=== PATIENT | female | born 2000 | race Two or more races ===

== ENCOUNTER 2025-02-24 07:43 | Inpatient (IN) | payer MEDICAID, SELFPAY ==
[2025-02-24] VITALS (8 sets, daily range): BP systolic 113–135; BP diastolic 83–103; PULSE 63–126; RESP 16–19; TEMP 36.3–37.1; O2SAT 96–100; BMI 27.4; BMI 28.8
--- NOTE | 2025-02-24 08:01 | XR_ITS ---
Examination: Abdomen sonogram, Limited Date and time of exam: February 24, 2025 0900 hrs. Indications: Upper abdominal pain and vomiting beginning 2 days ago Technique: Real-time rose scale transabdominal sonographic images of the upper abdomen obtained. Findings: Gallbladder sludge, small gallstones Gallbladder wall 0.3 cm Common bile duct 0.4 cm Pancreatic head 2.7 cm Liver 16.8 cm fatty infiltration irregular contour focal fatty sparing 13 x 13 mm Normal hepatopedal portal venous flow Patent IVC Impression: Cholelithiasis, negative for cholecystitis Primary hepatocellular disease
--- NOTE | 2025-02-24 08:02 | EDNOTE_ITS ---
ED Abdominal Pain RME/HPI General Chief Complaint: Abdominal Pain Stated complaint: UPPER EPIGASRIC PAIN Time seen by provider: 02/24/25 07:48 Arrival date/time: 02/24/25 07:43 24-year-old female with no known medical history presents to the emergency room with a chief complaint of 10 out of 10 right upper quadrant and epigastric abdominal pain x 2 days Source: patient Mode of arrival: ambulatory Limitations: no limitations Related Data Previous Rx's ?Medication ?Instructions ?Recorded acetaminophen 500 mg capsule 1,000 mg (2 x 500 mg) PO TID #30 10/13/22 caps ibuprofen 600 mg tablet 600 mg PO TID PRN pain #30 t abs 10/13/22 ondansetron 4 mg disintegrating 4 mg PO Q8H PRN nausea and 10/13/22 tablet vomiting #15 tabs ondansetron 4 mg disintegrating 4 mg PO Q8H PRN nausea and 06/07/23 tablet vomiting #20 tabs ibuprofen 800 mg tablet 800 mg PO TID PRN pain #30 t abs 09/06/23 cyclobenzaprine 10 mg tablet 10 mg PO TID PRN muscle s pasm #30 09/17/23 tabs ibuprofen 800 mg tablet 800 mg PO TID PRN pain #30 t abs 09/17/23 Allergies Allergy/AdvReac Type Severity Reaction Status Date / Time No Known Allergies Allergy Verified 02/24/25 07:47 Review of Systems Review of Systems Systems Reviewed: All systems reviewed, normal except as documented Constitutional Constitutional: Reports system reviewed and no additional complaints, except as documented, Denies fatigue, Denies fever(s), Denies headache(s) and Denies weakness Eyes Eyes: Reports system reviewed and no additional complaints, except as documented, Denies blurry vision and Denies change in vision ENT Ears, Nose, Mouth, and Throat: Reports system reviewed and no additional complaints, except as documented, Denies otalgia, Denies headache(s), Denies nasal congestion, Denies throat swelling and Denies vertigo Cardiovascular Cardiovascular: Reports system reviewed and no additional complaints, except as documented, Denies chest pain, Denies dyspnea and Denies dyspnea on exertion Respiratory Respiratory: Reports system reviewed and no additional complaints, except as documented, Denies chest congestion, Denies cough, Denies dyspnea, Denies dyspnea on exertion and Denies wheezing Gastrointestinal Gastrointestinal: Reports system reviewed and no additional complaints, except as documented, Reports abdominal pain, Reports cramping, Reports dyspepsia, Reports nausea and Reports vomiting Genitourinary Genitourinary: Reports system reviewed and no additional complaints, except as documented Musculoskeletal Musculoskeletal: Reports system reviewed and no additional complaints, except as documented and Denies back pain Integumentary/Breasts Skin/Breast: Reports system reviewed and no additional complaints, except as documented and Denies wounds Neurologic Neurologic: Reports system reviewed and no additional complaints, except as documented, Denies confusion, Denies headache(s), Denies lack of coordination, Denies vertigo and Denies weakness Psychiatric Psychiatric: Reports system reviewed and no additional complaints, except as documented, Denies anxiety, Denies confusion, Denies depression, Denies paranoia, Denies suicidal ideation and Denies tactile hallucinations Endocrine Endocrine: Reports system reviewed and no additional complaints, except as documented and Denies fatigue Hematologic/Lymphatic Hematologic/Lymphatic: Reports system reviewed and no additional complaints, except as documented and Denies lymphadenopathy Allergic/Immunologic Allergic/Immunologic: Reports system reviewed and no additional complaints, except as documented, Denies throat swelling, Denies urticaria and Denies wheezing Past Medical History Past Medical History NEUROLOGIC: Negative Neurological Disorders CARDIAC: Negative Cardiac Disorders or Congestive Heart Failure RESPIRATORY: Negative Chronic Obstructive Pulmonary Disease (COPD) or Asthma GASTROINTESTINAL: Positive Gastrointestinal Disorders; Negative Hepatitis or Colorectal Cancer GENITOURINARY: Positive Genitourinary Disorders; Negative Renal Disease or Prostate Cancer REPRODUCTIVE: Positive Previous Pregnancies; Negative Breast Cancer or Testicular Cancer MUSCULOSKELETAL: Negative Musculoskeletal Disorders or Bone Cancer ENDOCRINE: Negative Endocrine Disorders, Diabetes Mellitus Type 1 or Diabetes Mellitus Type 2 HEMATOLOGIC: Negative Blood Disorders or Sickle Cell Disease OTHER HISTORY: Negative Hospitalization, Autoimmune Disease, Down Syndrome, Developmental Delay, Shingles, Falls, Blood Transfusions, Blood Transfusion Reaction, Anesthesia Reactions, Organ Transplant, Chemotherapy, Radiation Therapy, Hyperbaric Therapy, MRSA, VRSA, Vancomycin-Resistant Enterococci, Human Immunodeficiency Virus (HIV), Chicken Pox, Measles, Mumps, Rubella (Senegalese Measles), Pertussis, Clostridium Difficile, Breast Cancer, Cervical Cancer, Colorectal Cancer, Lung Cancer, Ovarian Cancer, Prostate Cancer or Testicular Cancer Family History FAMILY HISTORY: Negative Family Psychiatric Problems, Family Respiratory Disorders, Family Cardiac Disorders, Family Gastrointestinal Problems, Family Cancer, Family Surgery or Family Anesthesia Reaction Surgical History SURGICAL: Negative Section or Organ Transplant Social History SMOKING STATUS: Never smoker SUBSTANCE USE: does not use ED Exam General Limitations: Present no limitations General appearance: Present alert and in no apparent distress Head Head exam: Present atraumatic Eye Eye exam: Present normal appearance, PERRL and EOMI ENT ENT exam: Present normal exam, normal oropharynx and mucous membranes moist Neck Neck exam: Present normal inspection, full ROM and trachea midline Chest Chest inspection: Present normal inspection and symmetric chest wall rise Respiratory Respiratory exam: Present normal lung sounds bilaterally Cardiovascular Cardiovascular exam: Present regular rate, normal rhythm and normal heart sounds Abdominal Exam Abdominal exam: Present soft, tenderness, normal bowel sounds and Jordan's sign; Absent distention, guarding, rebound or rigidity Abdominal tenderness: Present RUQ and moderate Extremities Exam Extremities exam: Present normal inspection and full ROM Back Exam Back exam: Present normal inspection and full ROM Neurological Exam Neurological exam: Present alert, oriented X3 and CN II-XII intact Psychiatric Psychiatric exam: Present normal affect and normal mood Skin Skin exam: Present warm, dry, intact and normal color Course Quality Measures none Orders Category Date Time Status COVID-19 Screening Questionnaire NOW Care 02/24/25 11:20 Ordered Decision to Admit X1 Care 02/24/25 11:20 Ordered Insert IV NOW Care 02/24/25 11:08 Active US gall bladder Stat Exams 02/24/25 08:01 Completed CBC Stat Lab 02/24/25 08:21 Completed CMP [Comprehensive Metabolic Panel] Stat Lab 02/24/25 08:21 Completed HCG Qualitative,Urine Stat Lab 02/24/25 08:22 Completed Lipase Stat Lab 02/24/25 08:21 Completed UA [Urinalysis] Stat Lab 02/24/25 08:22 Completed Urine Culture Stat Lab 02/24/25 08:22 Received HYDROcodone*/APAP 5/325 [Blackwell 5/325] Med 02/24/25 08:01 Discontinued 1 tab PO X1 ONE Morphine Inj Med 02/24/25 11:08 Discontinued 4 mg IVP X1 ONE Ondansetron Inj [Zofran Inj] Med 02/24/25 11:08 Discontinued 4 mg IV X1 ONE Ondansetron Odt [Zofran Odt] Med 02/24/25 08:01 Discontinued 4 mg PO X1 ONE Piper/Tazo 3.375 gm Premix [Zosyn] Med 02/24/25 11:08 Active 3.375 gm in 50 ml IV X1 Sodium Chloride 0.9% 1000 ml [Ns] 1,000 ml Med 02/24/25 11:08 Active IV 999 mls/hr Vital Signs Vital signs: Vital Signs Temperature 98.3 F 02/24/25 07:58 Pulse Rate 126 H 02/24/25 07:58 Respiratory Rate 18 02/24/25 07:58 Blood Pressure 124/92 H 02/24/25 07:58 Pulse Oximetry (%) 100 02/24/25 07:58 Oxygen Delivery Method Room Air 02/24/25 07:58 O2 saturation 100% within normal limits Abdominal Pain MDM MDM Narrative MDM Narrative:: 24-year-old female with no known medical history presents to the emergency room with a chief complaint of 10 out of 10 right upper quadrant and epigastric abdominal pain x 2 days Patient is afebrile not tachypneic but is tachycardic at 126 bpm. Physical examination shows right upper quadrant abdominal tenderness, 10 out of 10 epigastric pain with a positive Jordan sign. Ultrasound of the gallbladder was completed and shows gallbladder sludge as well as multiple small stones. At this time the bilirubin and liver enzymes are within normal limits. Patient has a lipase of 1048. During reevaluation the patient is still in pain. Dr. Evans and his attending team were consulted for admission. They came down to evaluate the patient and the patient will be admitted under their team. Patient data External records reviewed:: [facility] previous records Clinical information provided by:: patient Social determinants that could affect healthcare access:: none Patient has the following chronic illnesses:: No chronic illness How is presenting disease/condition affected by chronic disease/condition?: no chronic disease Evaluation data The following diagnostics were reviewed and interpreted by me:: lab results and radiology exam(s) Lab and/or radiology exams considered but not ordered:: Labs and radiology exams considered and ordered Interpretation Summary: Ultrasound gallbladder-Findings: Gallbladder sludge, small gallstones Gallbladder wall 0.3 cm Common bile duct 0.4 cm Pancreatic head 2.7 cm Liver 16.8 cm fatty infiltration irregular contour focal fatty sparing 13 x 13 mm Normal hepatopedal portal venous flow Patent IVC Impression: Cholelithiasis, negative for cholecystitis Primary hepatocellular disease Medications / Prescriptions Medications or Prescriptions considered but not ordered:: Medication given Medication administrations:: Medication Administration History Piperacillin/Tazobactam/Dextrose (Zosyn) 3.375 gm in 50 mls @ 100 mls/hr IV X1 ONE Stop: 02/24/25 11:37 Sodium Chloride (Ns) 1,000 mls @ 999 mls/hr IV .Q1H1M ONE Stop: 02/24/25 12:08 Discontinued Medications Hydrocodone Bitart/Acetaminophen (Hydrocodone/Apap 5/325 Tablet) 1 tab PO X1 ONE Stop: 02/24/25 08:02 Last Admin: 02/24/25 08:09 Dose: 1 tab Documented By: GM Morphine Sulfate (Morphine Sulf Inj 10 Mg/Ml Vial) 4 mg IVP X1 ONE Stop: 02/24/25 11:09 Ondansetron HCl (Ondansetron Odt 4 Mg Tabrap) 4 mg PO X1 ONE; Protocol Stop: 02/24/25 08:02 Last Admin: 02/24/25 08:10 Dose: 4 mg Documented By: GM Ondansetron HCl (Ondansetron Inj 2 Mg/Ml Inj 2 Ml) 4 mg IV X1 ONE; Protocol Stop: 02/24/25 11:09 Medication given Consultations Consultation(s) initiated? (list below): No Diagnosis Differential diagnosis abdominal pain: abdominal pain, constipation, gastroenter itis, small bowel obstruction and other (Cholelithiasis/cholecystitis/acute pancreatitis) Most likely diagnosis given after review of the tests above:: Pancreatitis Admission Indicated Admission indicated?: not indicated Admission Request Was there a request for admission?: Yes Admission Attestation Admission request attestation: Discussed case with [] from Hospitalist service regarding admission. Discussed patients ED course, exam findings, labs, and radiology results. The Hospitalist [agrees,declines] to accept the patient for admission. Disposition Plan Disposition Plan: Admit Discharge Plan Plan Patient Disposition: Admit Acute Care w/in Hospital Disposition Comment: Stable Prescriptions/Referrals Prescriptions/Med Rec: No Action ondansetron 4 mg tablet,disintegrating 4 mg PO Q8H PRN (Reason: nausea and vomiting) Qty: 20 0RF ibuprofen 600 mg tablet 600 mg PO TID PRN (Reason: pain) Qty: 30 0RF ondansetron 4 mg tablet,disintegrating 4 mg PO Q8H PRN (Reason: nausea and vomiting) Qty: 15 0RF acetaminophen 500 mg capsule 1,000 mg PO TID Qty: 30 0RF ibuprofen 800 mg tablet 800 mg PO TID PRN (Reason: pain) Qty: 30 0RF ibuprofen 800 mg tablet 800 mg PO TID PRN (Reason: pain) Qty: 30 0RF cyclobenzaprine 10 mg tablet 10 mg PO TID PRN (Reason: muscle spasm) Qty: 30 0RF Referrals: No Primary/Family,Physician [Primary Care Provider] - In 1 week Problem List Clinical Impression: Acute pancreatitis, UTI (urinary tract infection), Nausea & vomiting Patient/Caregiver Discharge Instructions Print Language: Micronesian Stand Alone Forms: Keisha Award Info., Patient Portal Info Letter PA/SIMULATION SOFTWARE ENGINEER Supervising Physician PA/SIMULATION SOFTWARE ENGINEER Supervising Physician: Dr. Henning
[2025-02-24] MEDS: HYDROcodone/APAP 5/325 TABLET 1 TAB PO (08:09)
[2025-02-24] MEDS: ONDANSETRON ODT 4 MG TABRAP PO (08:10)
[2025-02-24 08:32] LABS: Collection Type, Urine Clean Catch
[2025-02-24 08:37] LABS: Bilirubin,Urine Negative (Negative); Blood,Urine Negative (Negative); Clarity,Urine Turbid (Clear/Hazy); Color,Urine Yellow (Lt Yel-Yel); Glucose, Urine Negative (Negative); Ketones,Urine 1+ (Negative); Leukocyte Esterase,Urine Positive (Negative); Nitrite,Urine Negative (Negative); Protein,Urine Trace (Neg - Trace); RBC,Urine 14 /hpf (0-3); Specific Gravity,Urine 1.016 (1.001-1.035); Squamous Epithelial Cell,Urine 8 /hpf (0-5); WBC,Urine 156 /hpf (0-5)
[2025-02-24 08:38] LABS: HCG Qualitative,Urine Negative
[2025-02-24 09:06] LABS: Basophils % (Auto) 0 % (0-2.5); Eosinophils # (Auto) 0.2 Thou/mm3 (0.0-0.5); Eosinophils % (Auto) 1 % (0-10); Hematocrit 41.1 % (36.0-46.0); Hemoglobin 14.4 g/dL (12.0-16.0); Immature Granulocytes % (Auto) 0 % (0-0); Immature Granulocytes Auto 0.07 Thou/mm3 (0.00-0.00); Lymphocytes # (Auto) 2.6 Thou/mm3 (1.0-4.8); Lymphocytes % (Auto) 16 % (10-50); Mean Corpuscular Hemoglobin 36.8 pg (25.0-35.0); Mean Corpuscular Volume 105 fL (80-100); Monocytes # (Auto) 0.9 Thou/mm3 (0.0-0.8); Monocytes % (Auto) 5 % (0-12); Neutrophils # (Auto) 12.8 Thou/mm3 (1.8-7.7); Neutrophils % (Auto) 77 % (37-80); Nucleated Red Blood Cell % 0 /100 WBC (0); Platelet Count 552 Thou/mm3 (140-440); RDW Standard Deviation 57.8 fL (36.4-46.3); Red Blood Count 3.91 Miln/mm3 (4.00-5.20); White Blood Count 16.6 Thou/mm3 (3.6-11.0)
[2025-02-24 09:31] LABS: Alanine Aminotransferase 18 U/L (10-49); Albumin, Serum 4.4 gm/dL (3.5-5.0); Albumin/Globulin Ratio 1.4 (1.2-2.2); Alkaline Phosphatase 108 U/L (46-116); Anion Gap 15 (7-16); Aspartate Amino Transferase 27 U/L (0-34); BUN/Creatinine Ratio 10 Ratio (12-20); Blood Urea Nitrogen < 5 mg/dL (9-23); Calcium 9.8 mg/dL (8.3-10.6); Calcium (Corrected) 9.8 mg/dL (8.5-10.1); Carbon Dioxide 19.1 mMol/L (20.0-31.0); Chloride 104 mMol/L (98-107); Creatinine (Component) 0.5 mg/dL (0.6-1.3); Estimated Creatinine Clearance 155.5 mL/min (>60); Globulin 3.2 gm/dL (2.3-3.5); Glucose 102 mg/dL (74-106); Lipase 1048 U/L (12-53); Osmolality,Calculated 272 (275-295); Potassium 3.3 mMol/L (3.4-5.1); Sodium 138 mMol/L (136-145); Total Protein 7.6 gm/dL (5.7-8.2); eGFR > 60 See Note
--- NOTE | 2025-02-24 11:13 | PD.EDRME ---
Rapid Medical Screening Exam RME Arrival date/time: 02/24/25 07:43 Chief Complaint: Abdominal Pain Time Seen by Provider: 02/24/25 07:48 Vital signs: Vital Signs Temperature 98.3 F 02/24/25 07:58 Pulse Rate 126 H 02/24/25 07:58 Respiratory Rate 18 02/24/25 07:58 Blood Pressure 124/92 H 02/24/25 07:58 Pulse Oximetry (%) 100 02/24/25 07:58 Oxygen Delivery Method Room Air 02/24/25 07:58
[2025-02-24] MEDS: SODIUM CHLORIDE 0.9% 1000 ML 1,000 ML 999 ML IV (11:46)
[2025-02-24] MEDS: ONDANSETRON INJ 2 MG/ML INJ 2 ML 4 MG IV ×2 (11:47→16:05)
[2025-02-24] MEDS: MORPHINE SULF INJ 10 MG/ML VIAL 4 MG IVP (11:48)
[2025-02-24] MEDS: PIPER/TAZO 3.375 GM PREMIX 3.375 GM/50 ML BAG IV (11:52)
--- NOTE | 2025-02-24 12:09 | PC.CC ---
Patient is a 24 year-old who presents to the hospital for upper epigastric pain. Belinda FOLEY made [id number] contact with patient. ASW introduced self, role, and reason for visit. Patient appeared alert and oriented to self, location, and situation. Patient was pleasant and engaged in initial assessment. Patient reports she lives at home with her two children and she is currently unemployed. Patient reports in the event she is unable to make her own medical decisions her medical decision maker is her mother, Cristiana Estevez . Per patient at home she is independent with all her ADLs and ambulates independently. Patient does not use any DME at home. Patient receives primary care with [facility] [address]. For prescription medications the patient uses [facility]. Upon discharge the patient plans to return home. Loader Unloader to follow up with any discharge needs.
[2025-02-24] MEDS: HYDROmorphone INJ 2 MG/ML VIAL 0.5 MG IVP ×3 (12:20→19:54)
[2025-02-24] MEDS: RINGERS LACTATED 1000 ML 1,000 ML 125 ML IV ×2 (12:35→20:13)
[2025-02-24] MEDS: PANTOPRAZOLE 40 MG TABLET PO (12:35)
--- NOTE | 2025-02-24 15:23 | PC.NURSE ---
REPORT GIVEN TO KAITLIN IN MED SURG
--- NOTE | 2025-02-24 15:51 | ESHP_ITS ---
<Statement entered by Jan Clifton MD - 02/25/25 07:30> Senior Resident Attestation: I supervised/discussed management plan with product marketing intern physician Dr. Johnston, and was involved in the care of this patient. I personally saw and examined the patient and discussed the assessment and plan with the entire medicine team, including my attending. I agree with the assessment and plan as documented. Patient's care was discussed with attending physician, Dr. Evans. Jan Clifton MD PGY-2. Documentation for date of: 02/24/25 HPI History of Present Illness Chief complaint: abdominal pain History of present illness: A 24-year-old female with no significant past medical history presented to the ED with chief complaints of abdominal pain and vomiting since 2 days. Patient was apparently normal 2 days back. Patient had 4 shots of spirit and had greasy food 2 days before. Patient noticed severe abdominal pain on waking up yesterday night and since then she is complaining of abdominal pain mainly in the epigastric region radiating to the back. Later patient started developing nausea with vomitings and had multiple episodes. Denies fever, diarrhea, shortness of breath, burning micturition ED course: -Vitals are stable at the time of admission except for tachycardia with heart rate around 126 -Labs showed WBC 16.6, Hb 14.4, platelets 552, sodium 138, potassium 3.3, bicarb 19.1, BUN 5, creatinine 0.5, lipase 1048. -Urine analysis showed turbid urine with 1+ ketones, 14 RBC, 156 WBC, 8 squamous epithelial cells with no bacteria -Gallbladder ultrasound showed cholelithiasis with no duct obstruction with CBD 0.4 cm Past medical history: Not significant Past surgical history: Not significant Social history: Lives with 2 children at home, currently not going for work, previously used to work in [employer]. Denies smoking, other illicit drug abuse. Consumes alcohol 3-4 shots twice in a week Allergies: NKDA Review of Systems Review of Systems Systems Reviewed: All systems reviewed, normal except as documented Exam Vital Signs Temp Pulse Resp BP Pulse Ox O2 Del Method 98.8 F 94 18 119/89 H 98 Room Air 02/24/25 14:15 02/24/25 14:15 02/24/25 14:15 02/24/25 14:15 02/24/25 14:15 02/24/25 14:15 Narrative Exam General: Awake. HEENT: Normocephalic, atraumatic, mucous membranes moist. Heart: Regular rate and rhythm, no murmurs. Lungs: Clear to auscultation with no wheezing or crackles. Abdomen: Soft, nondistended, epigastric tenderness noted,, positive bowel sounds. ?No guarding or rebound tenderness. Neurologic: Alert and oriented x3, no gross neurological deficit, and patient able to move all 4 extremities. Extremities: No edema. Skin: No rash or ecchymoses. Results: Labs 02/28/25 05:10 02/28/25 05:10 Labs: Short CBC 02/24/25 Range/Units 08:21 WBC 16.6 H (3.6-11.0) Thou/mm3 Hgb 14.4 (12.0-16.0) g/dL Hct 41.1 (36.0-46.0) % Plt Count 552 H (140-440) Thou/mm3 BMP 02/24/25 08:21 Sodium 138 Potassium 3.3 L Chloride 104 Carbon Dioxide 19.1 L BUN < 5 L Creatinine 0.5 L Glucose 102 Calcium 9.8 Liver Function 02/24/25 Range/Units 08:21 Total Bilirubin 1.0 (0.3-1.2) mg/dL AST 27 (0-34) U/L ALT 18 (10-49) U/L Alkaline Phosphatase 108 (46-116) U/L Albumin 4.4 (3.5-5.0) gm/dL Urine 02/24/25 Range/Units 08:22 Urine Color Yellow (Lt Yel-Yel) Urine Clarity Turbid A (Clear/Hazy) Urine pH 6.0 (5.0-7.0) Ur Specific [place] 1.016 (1.001-1.035) Urine Protein Trace (Neg - Trace) Urine Glucose (UA) Negative (Negative) Quality Measures Quality Measures none Medications Home Medications and Allergies Home Medications ?Medication ?Instructions ?Recorded ?Confirmed ?Type ergocalciferol (vitamin D2) 1,250 1,250 mcg PO .ONCE [place] 02/24/25 02/24/25 History mcg (50,000 unit) capsule folic acid 1 mg tablet 1 mg PO DAILY 02/24/2502/24 History Allergies Allergy/AdvReac Type Severity Reaction Status Date / Time No Known Allergies Allergy Verified 02/24/25 07:47 Visit Medications Acetaminophen (Acetaminophen 325 Mg Tablet) 650 mg PO Q6H PRN PRN Reason: Fever >100.3 Stop: 03/26/25 11:33 Hydromorphone HCl (Hydromorphone Inj 2 Mg/Ml Vial) 0.5 mg IVP Q3HR PRN PRN Reason: Pain 7-10 Stop: 03/01/25 11:33 Last Admin: 02/24/25 15:01 Dose: 0.5 mg Lactated Ringer's (Lactated Ringers) 1,000 mls @ 125 mls/hr IV .Q8H SHAE Stop: 03/26/25 11:44 Last Admin: 02/24/25 12:35 Dose: 125 mls/hr Ondansetron HCl (Ondansetron Inj 2 Mg/Ml Inj 2 Ml) 4 mg IV Q6H PRN; Protocol PRN Reason: NAUSEA OR VOMITING Stop: 03/26/25 11:33 Pantoprazole Sodium (Pantoprazole 40 Mg Tablet) 40 mg PO QDAY SHAE Stop: 03/26/25 11:44 Last Admin: 02/24/25 12:35 Dose: 40 mg Discontinued Medications Hydrocodone Bitart/Acetaminophen (Hydrocodone/Apap 5/325 Tablet) 1 tab PO X1 ONE Stop: 02/24/25 08:02 Last Admin: 02/24/25 08:09 Dose: 1 tab Piperacillin/Tazobactam/Dextrose (Zosyn) 3.375 gm in 50 mls @ 100 mls/hr IV X1 ONE Stop: 02/24/25 11:37 Last Infusion: 02/24/25 12:30 Dose: Infused Sodium Chloride (Ns) 1,000 mls @ 999 mls/hr IV .Q1H1M ONE Stop: 02/24/25 12:08 Last Infusion: 02/24/25 14:20 Dose: Infused Morphine Sulfate (Morphine Sulf Inj 10 Mg/Ml Vial) 4 mg IVP X1 ONE Stop: 02/24/25 11:09 Last Admin: 02/24/25 11:48 Dose: 4 mg Ondansetron HCl (Ondansetron Odt 4 Mg Tabrap) 4 mg PO X1 ONE; Protocol Stop: 02/24/25 08:02 Last Admin: 02/24/25 08:10 Dose: 4 mg Ondansetron HCl (Ondansetron Inj 2 Mg/Ml Inj 2 Ml) 4 mg IV X1 ONE; Protocol Stop: 02/24/25 11:09 Last Admin: 02/24/25 11:47 Dose: 4 mg Assessment & Plan Plan A 24-year-old female with no significant past medical history came to the hospital with chief complaints of abdominal Pain, vomitings and admitted for acute pancreatitis # Acute pancreatitis -Patient presented to the hospital with epigastric pain radiating to the back associated with vomitings -Labs showed lipase of 1048, WBC 16.6, Hb 14.4 -Patient had history of alcohol intake-4 shots of spirit, greasy food intake before the onset of pain -Gallbladder ultrasound showed cholelithiasis with CBD 0.4 cm, no cholecystitis Plan -Patient received 1 L of IV bolus NS in the ED -Started on IV fluids maintenance, LR at 125 mL/h -Hydromorphone 0.5 Mg every third hourly as needed for pain -Ondansetron as needed -N.p.o. for now except for ice chips -Patient is complaining of epigastric pain with burning sensation, added pantoprazole 40 Mg p.o. daily # Hypokalemia # Metabolic acidosis -Potassium at the time of admission is 3.3, bicarb is 19.1 -Likely due to the vomitings -Started on ondansetron as needed -Will monitor electrolytes, replete accordingly # Asymptomatic UTI -Urine analysis showed turbid urine with 1+ ketonuria, 14 RBC, 156 WBC but patient does not have any symptoms of UTI -Will hold antibiotics for now Hospital Maintenance: Dispo: MedSurg DVT ppx: SCD GI ppx: Protonix Diet: N.p.o. except ice chips IV lines: Peripheral Code status: Full code Patient plan of care was discussed with the attending physician, Dr. Evans and senior resident Dr. Elodia Johnston, PGY1 Attending Provider Attestation/Addendum Patient seen and examined at bedside with resident. Agree with assessment and plan as dictated above. Patient admitted for acute pancreatitis, pain management, fluids, labs for etiology currently pending. Bill Evans MD
--- NOTE | 2025-02-24 15:52 | PC.SS ---
Charlotte Morse is 24 year-old female admitted to Med-Surg for Pancreatitis. SS conducted bedside contact with the patient to complete initial assessment and to discuss discharge planning.? Patient confirmed demographic information. Patient identifies her mother Cristiana Estevez [phone] as her surrogate decision maker. Patient resides at home with her family. Pt states she is able to complete all ADL?s independently, no DME needed. Pts PCP is Dr. Yanez [facility] (last visit 1 month ago) and her pharmacy of choice is [facility]. DC options discussed and pt wishes to return home. Pts family will provide transportation upon DC. No further intervention required at this time, child welfare social worker would be available to address any further concerns. DC Plan: Home Contact: Mom-Cristiana ? PCP: Beau Address: [address]
[2025-02-25] VITALS (7 sets, daily range): BP systolic 122–134; BP diastolic 83–100; PULSE 66–104; RESP 16–19; TEMP 36.1–36.8; O2SAT 95–99
[2025-02-25] MEDS: ONDANSETRON INJ 2 MG/ML INJ 2 ML 4 MG IV ×3 (03:17→21:42)
[2025-02-25] MEDS: HYDROmorphone INJ 2 MG/ML VIAL 0.5 MG IVP ×4 (04:00→21:41)
[2025-02-25] MEDS: RINGERS LACTATED 1000 ML 1,000 ML 125 ML IV ×2 (04:07→16:13)
[2025-02-25 05:04] LABS: Basophils % (Auto) 0 % (0-2.5); Eosinophils # (Auto) 0.1 Thou/mm3 (0.0-0.5); Eosinophils % (Auto) 1 % (0-10); Hemoglobin 11.9 g/dL (12.0-16.0); Immature Granulocytes % (Auto) 1 % (0-0); Immature Granulocytes Auto 0.06 Thou/mm3 (0.00-0.00); Lymphocytes # (Auto) 1.5 Thou/mm3 (1.0-4.8); Lymphocytes % (Auto) 12 % (10-50); Mean Corpuscular Hemoglobin 36.2 pg (25.0-35.0); Mean Corpuscular Volume 106 fL (80-100); Monocytes # (Auto) 0.8 Thou/mm3 (0.0-0.8); Monocytes % (Auto) 6 % (0-12); Neutrophils # (Auto) 10.1 Thou/mm3 (1.8-7.7); Neutrophils % (Auto) 80 % (37-80); Nucleated Red Blood Cell % 0 /100 WBC (0); Platelet Count 331 Thou/mm3 (140-440); RDW Standard Deviation 58.7 fL (36.4-46.3); Red Blood Count 3.29 Miln/mm3 (4.00-5.20); White Blood Count 12.6 Thou/mm3 (3.6-11.0)
[2025-02-25 05:43] LABS: Anion Gap 10 (7-16); BUN/Creatinine Ratio 15 Ratio (12-20); Blood Urea Nitrogen 6 mg/dL (9-23); Calcium 8.6 mg/dL (8.3-10.6); Carbon Dioxide 21.4 mMol/L (20.0-31.0); Cardiac Risk Estimate 5.1 RATIO (3.7-5.6); Chloride 106 mMol/L (98-107); Cholesterol 157 mg/dL (132-200); Creatinine (Component) 0.4 mg/dL (0.6-1.3); Estimated Creatinine Clearance 199.1 mL/min (>60); Glucose 89 mg/dL (74-106); HDL Cholesterol 31 mg/dL (40-60); LDL Cholesterol,Calculated 101 mg/dL (0-130); Lipase 401 U/L (12-53); Magnesium 1.4 mg/dL (1.6-2.6); Osmolality,Calculated 270 (275-295); Phosphorous 4.8 mg/dL (2.4-5.1); Potassium 3.9 mMol/L (3.4-5.1); Sodium 137 mMol/L (136-145); Thyroid Stimulating Hormone 1.02 uIU/mL (0.55-4.78); Triglycerides 123 mg/dL (30-150); eGFR > 60 See Note
[2025-02-25] MEDS: PANTOPRAZOLE 40 MG TABLET PO (08:09)
[2025-02-25] MEDS: Magnesium Sulfate 4 GM Ivpb 4 GM/50 ML BAG IV (08:59)
--- NOTE | 2025-02-25 09:55 | PC.SS ---
SS follow up note; Patient is currently on IV fluids. Patients pain is being manage with Opioids for pain. Patient will discharge home when medically cleared.
--- NOTE | 2025-02-25 13:16 | PC.NURSE ---
RN called MD for PT eval order due to patient c/o BLE weakness. MD will put in order.
--- NOTE | 2025-02-25 16:05 | ESCONSULT_ITS ---
HPI Consult details History of present illness: 24F admitted yesterday with pancreatitis. Pt states her pain began two days ago in the epigastrium, radiating to the left and right upper abdomen as well as to the back. Pain associated with nausea/vomiting, no fever, no diarrhea and no history of similar pain. Pt reports she drank approximately 3 shots the night before the pain began, and has not noted any association of the pain with eating. She states that at baseline she has a minimal appetite and she has never had RUQ pain associated with eating. On admission she underwent abdominal US showing gallstones, no signs of cholecystitis As of today pt reports pain is improved, she only feels soreness and no longer has nausea although she has her baseline minimal appetite. Her WBC is 12 today from 16, LFTs were normal yesterday and lipase was 1048 yesterday now in 400s PMH: Denies PSHx: Denies Meds: vitamin D, folate Allergies: NKDA Social hx: pt reports she drinks somewhat heavily with friends on weekends, mixing beer and hard liquor usually having several drinks but not on weekdays. No cigarette smoking Family hx: No known malignancy Review of Systems Review of Systems ROS Unobtainable: All systems reviewed & no additional complaints except as documented Constitutional Constitutional: Denies headache(s) and Denies weakness ENT Ears, Nose, Mouth, and Throat: Denies headache(s) and Denies vertigo Neurologic Neurologic: Reports system reviewed and no additional complaints, except as documented, Denies confusion, Denies headache(s), Denies lack of coordination, Denies vertigo and Denies weakness Psychiatric Psychiatric: Denies confusion Meds Home Medications and Allergies Home Medications ?Medication ?Instructions ?Recorded ?Confirmed ?Type ergocalciferol (vitamin D2) 1,250 1,250 mcg PO .ONCE W [place] 02/24/25 02/24/25 History mcg (50,000 unit) capsule folic acid 1 mg tablet 1 mg PO DAILY 02/24/2502/24 History Allergies Allergy/AdvReac Type Severity Reaction Status Date / Time No Known Allergies Allergy Verified 02/24/25 07:47 Exam Vital Signs Temp Pulse Resp BP Pulse Ox O2 Del Method 97.0 F 66 16 125/90 H 97 Room Air 02/25/25 12:00 02/25/25 12:00 02/25/25 12:00 02/25/25 14:01 02/25/25 12:00 02/25/25 12:00 Constitutional Constitutional: no acute distress Routine Respiratory Exam Respiratory: Present no resp distress Routine Abdominal Exam Abdominal: Present soft; Absent tenderness or distended Results Results: Laboratory Laboratory results: results reviewed Results: Imaging US - abdomen: report reviewed Assessment & Plan Plan 24F presenting with acute pancreatitis approx 24 hours after drinking liquor, additionally found to have gallstones. I explained to pt that alcohol and gallstones are the two most common causes of pancreatitis and that it is somewhat difficult to determine how much each factor contributed to her particular clinical presentation; because she is otherwise healthy I think it is reasonable to pursue cholecystectomy either during this admission or electively as an outpatient. I explained risks/benefits of surgery including need for conversion to open, bleeding, infection and injury to nearby structures requiring further procedures and/or potential surgery which would require transfer to another hospital. Pt expressed understanding and would like to consider for now
--- NOTE | 2025-02-25 16:28 | ESPR_ITS ---
<Statement entered by Jan Clifton MD - 02/27/25 07:35> Senior Resident Attestation: I supervised/discussed management plan with inclusion internship physician Dr. Johnston, and was involved in the care of this patient. I personally saw and examined the patient and discussed the assessment and plan with the entire medicine team, including my attending. I agree with the assessment and plan as documented. Patient's care was discussed with attending physician, Dr. Ramsey. Jan Clifton MD PGY-2. Documentation for date of: 02/25/25 Subjective Subjective Interval history: Patient is seen and examined at bedside. No acute overnight events. Complaining of weakness in lower extremities and having difficulty in walking Vitals are stable. On physical examination, no gross neurological deficit is noted, lower extremity weakness could be due to the acute illness and dehydration in the setting of pancreatitis Labs showed downtrending WBC, magnesium 1.4, downtrending lipase 401 Dr. Arellano is consulted in view of gallstones noted on ultrasound, will appreciate her recommendations Will continue IV fluids and pain medications for now 4 g of magnesium sulfate is given Exam Vital Signs Temp Pulse Resp BP Pulse Ox O2 Del Method 97.0 F 66 16 125/90 H 97 Room Air 02/25/25 12:00 02/25/25 12:00 02/25/25 12:00 02/25/25 14:01 02/25/25 12:00 02/25/25 12:00 Narrative Exam General: Awake. HEENT: Normocephalic, atraumatic, mucous membranes dry Heart: Regular rate and rhythm, no murmurs. Lungs: Clear to auscultation with no wheezing or crackles. Abdomen: Soft, nondistended, nontender, positive bowel sounds. ?No guarding or rebound tenderness. Neurologic: Alert and oriented x3, no gross neurological deficit, and patient able to move all 4 extremities. Extremities: No edema. Skin: No rash or ecchymoses. Objective Labs 02/26/25 04:10 02/26/25 04:10 Labs: Laboratory Results - last 24 hr 02/25/25 05:00 WBC 12.6 H RBC 3.29 L Hgb 11.9 L D Hct 35.0 L MCV 106 H MCH 36.2 H MCHC 34.0 RDW Std Deviation 58.7 H Plt Count 331 D Neut % (Auto) 80 Lymph % (Auto) 12 [place] % (Auto) 6 Eos % (Auto) 1 Baso % (Auto) 0 Neut # (Auto) 10.1 H Lymph # (Auto) 1.5 [place] # (Auto) 0.8 Eos # (Auto) 0.1 Baso # (Auto) 0.0 Immature Gran # (Auto) 0.06 H Absolute Nucleated RBC 0.00 Immature Gran % 1 H Nucleated RBC % 0 Sodium 137 Potassium 3.9 D Chloride 106 Carbon Dioxide 21.4 Anion Gap 10 BUN 6 L Creatinine 0.4 L Estim Creat Clear Calc 199.1 eGFR > 60 BUN/Creatinine Ratio 15 Glucose 89 Calculated Osmolality 270 L Calcium 8.6 Phosphorus 4.8 Magnesium 1.4 L Triglycerides 123 Cholesterol 157 LDL Cholesterol, Calc 101 HDL Cholesterol 31 L Cholesterol/HDL Ratio 5.1 Lipase 401 H D TSH 1.02 Quality Measures Quality Measures none Assessment & Plan Assessment Current Active Medications: Generic Name Dose Route Start Last Admin Trade Name Freq PRN Reason Stop Dose Admin Acetaminophen 650 mg 02/24/25 11:34 Acetaminophen 325 Mg Tablet PO 03/26/25 11:33 Q6H PRN Fever >100.3 Hydromorphone HCl 0.5 mg 02/24/25 11:34 02/25/25 08:58 Hydromorphone Inj 2 Mg/Ml Vial IVP 03/01/25 11:33 0.5 mg Q3HR PRN Administration Pain 7-10 Lactated Ringer's 1,000 mls @ 125 mls/hr 02/25/25 13:39 02/25/25 16:13 Lactated Ringers IV 02/26/25 05:38 125 mls/hr .Q8H SHAE Administration Ondansetron HCl 4 mg 02/24/25 11:34 02/25/25 11:58 Ondansetron Inj 2 Mg/Ml Inj 2 Ml IV 03/26/25 11:33 4 mg Q6H PRN Administration NAUSEA OR VOMITING Protocol Pantoprazole Sodium 40 mg 02/24/25 11:45 02/25/25 08:09 Pantoprazole 40 Mg Tablet PO 03/26/25 11:44 40 mg QDAY SHAE Administration Plan A 24-year-old female with no significant past medical history came to the hospital with chief complaints of abdominal Pain, vomitings and admitted for acute pancreatitis # Acute pancreatitis -Patient presented to the hospital with epigastric pain radiating to the back associated with vomitings -Labs showed lipase of 1048, WBC 16.6, Hb 14.4 -Patient had history of alcohol intake-4 shots of spirit, greasy food intake before the onset of pain -Gallbladder ultrasound showed cholelithiasis with CBD 0.4 cm, no cholecystitis Plan -Patient received 1 L of IV bolus NS in the ED -Started on IV fluids maintenance, LR at 125 mL/h -Hydromorphone 0.5 Mg every third hourly as needed for pain -Ondansetron as needed -Started on clear liquid diet -Patient is complaining of epigastric pain with burning sensation, added pantoprazole 40 Mg p.o. daily -Ordered physical therapy as patient is c/o difficulty walking and weakness in the lower extremities - likely due to electrolyte imbalance and acute illness, dehydration from pancreatitis - will re evaluate tomorrow and if the weakness still exists will workup more -Dr. Baldwin was consulted in view of gallstones, recommended surgery to the patient either in the hospital or on outpatient basis-patient is thinking about the procedure # Hypokalemia, resolved # Metabolic acidosis -Potassium at the time of admission is 3.3, bicarb is 19.1 - WNL as of 02/25/2025 -Likely due to the vomitings -Started on ondansetron as needed -Will monitor electrolytes, replete accordingly # Asymptomatic UTI -Urine analysis showed turbid urine with 1+ ketonuria, 14 RBC, 156 WBC but patient does not have any symptoms of UTI -Will hold antibiotics for now Hospital Maintenance: Dispo: MedSurg DVT ppx: lovenox GI ppx: Protonix Diet: Clear liquid diet IV lines: Peripheral Code status: Full code Patient plan of care was discussed with the attending physician, Dr. Ramsey and senior resident Dr. Elodia Johnston, PGY1 Attending Provider Attestation/Addendum I attest that I was physically present for the evaluation, physical examination, lab and imaging review of the patient with the residents. I discussed the case with the residents and agree with the findings and plans of care as documented above. At bedside today, patient states that her pain is improving.? Her nausea has also improved, she has started to tolerate clear liquid diet.? Continues to have abdominal tenderness but states it has improved compared to yesterday.? Discussed with patient regarding cause of her pancreatitis, unable to differentiate if it was from alcohol salts she took for gallstone pancreatitis as patient also was found to have cholelithiasis on gallbladder ultrasound.? We will obtain general surgery consult to evaluate the need for cholecystectomy.? Vital signs are stable today.? WBC count has been downtrending, 16.6-12.6 today. Vital signs her magnesium level was 1.4, repleted accordingly.? Lipase level have been improving, 401 today from 1048 yesterday.? Patient also stated that she was having some lower leg weakness, numbness and tingling for last few days.? She had similar symptoms this morning to but stated that it has been improving in the afternoon.? We will continue to monitor. Sheri Ramsey MD
[2025-02-25] MEDS: ENOXAPARIN SOD INJ 40 MG/0.4 ML SYRINGE SC (17:03)
[2025-02-25] MEDS: FOLIC ACID 1 MG TABLET PO (17:03)
[2025-02-25] MEDS: THIAMINE 100 MG TABLET PO (17:03)
[2025-02-25 20:46] LABS: Vitamin B12 302 pg/mL (211-911)
[2025-02-25] MEDS: LORazepam 0.5 MG TABLET PO (21:48)
[2025-02-26] VITALS: BP 109/85; PULSE 77; RESP 16; TEMP 36.4; O2SAT 93
[2025-02-26] MEDS: RINGERS LACTATED 1000 ML 1,000 ML 125 ML IV (00:07)
[2025-02-26 04:00] VITALS: BP 112/77; PULSE 78; RESP 16; TEMP 36.3; O2SAT 97
[2025-02-26 05:42] LABS: Basophils % (Auto) 1 % (0-2.5); Eosinophils # (Auto) 0.2 Thou/mm3 (0.0-0.5); Eosinophils % (Auto) 3 % (0-10); Hematocrit 30.1 % (36.0-46.0); Hemoglobin 10.4 g/dL (12.0-16.0); Immature Granulocytes % (Auto) 1 % (0-0); Immature Granulocytes Auto 0.04 Thou/mm3 (0.00-0.00); Lymphocytes # (Auto) 1.8 Thou/mm3 (1.0-4.8); Lymphocytes % (Auto) 22 % (10-50); Mean Corpuscular HGB Conc 34.6 g/dl (31.0-37.0); Mean Corpuscular Hemoglobin 36.6 pg (25.0-35.0); Mean Corpuscular Volume 106 fL (80-100); Monocytes # (Auto) 0.6 Thou/mm3 (0.0-0.8); Monocytes % (Auto) 7 % (0-12); Neutrophils # (Auto) 5.5 Thou/mm3 (1.8-7.7); Neutrophils % (Auto) 67 % (37-80); Nucleated Red Blood Cell % 0 /100 WBC (0); Platelet Count 301 Thou/mm3 (140-440); RDW Standard Deviation 58.4 fL (36.4-46.3); Red Blood Count 2.84 Miln/mm3 (4.00-5.20); White Blood Count 8.2 Thou/mm3 (3.6-11.0)
[2025-02-26 06:06] LABS: Anion Gap 10 (7-16); BUN/Creatinine Ratio 17 Ratio (12-20); Blood Urea Nitrogen < 5 mg/dL (9-23); Calcium 8.1 mg/dL (8.3-10.6); Carbon Dioxide 21.9 mMol/L (20.0-31.0); Chloride 106 mMol/L (98-107); Creatinine (Component) 0.3 mg/dL (0.6-1.3); Estimated Creatinine Clearance 265.5 mL/min (>60); Glucose 55 mg/dL (74-106); Osmolality,Calculated 270 (275-295); Potassium 3.2 mMol/L (3.4-5.1); Sodium 138 mMol/L (136-145); eGFR > 60 See Note
[2025-02-26] MEDS: HYDROmorphone INJ 2 MG/ML VIAL 0.5 MG IVP ×5 (06:06→23:06)
[2025-02-26 08:00] VITALS: BP 131/102; PULSE 90; RESP 16; TEMP 36.1; O2SAT 99
[2025-02-26 09:53] LABS: Magnesium 1.8 mg/dL (1.6-2.6)
--- NOTE | 2025-02-26 09:53 | PC.SS ---
SS follow up note; Patient is on CIWA Protocol.
[2025-02-26] MEDS: ENOXAPARIN SOD INJ 40 MG/0.4 ML SYRINGE SC (09:56)
[2025-02-26] MEDS: THIAMINE 100 MG TABLET PO (09:56)
[2025-02-26] MEDS: FOLIC ACID 1 MG TABLET PO (09:56)
[2025-02-26] MEDS: POTASSIUM CHLORIDE 20 mEq TABCR 40 MEQ PO (09:56)
[2025-02-26] MEDS: Magnesium Sulfate 2 GM Ivpb 2 GM/50 ML BAG IV (09:57)
[2025-02-26] MEDS: POTASSIUM CHLORIDE 20 mEq TABCR PO (11:26)
[2025-02-26] MEDS: VIT B12/Vit C/FA (Nephrovite) TABLET 1 TAB PO (11:26)
[2025-02-26] MEDS: RINGERS LACTATED 1000 ML 1,000 ML 100 ML IV (11:28)
[2025-02-26 12:00] VITALS: BP 121/87; PULSE 78; RESP 18; TEMP 36.1; O2SAT 98
[2025-02-26 12:00] LABS: Lipase 155 U/L (12-53)
[2025-02-26 16:00] VITALS: BP 120/78; PULSE 78; RESP 19; TEMP 36.2; O2SAT 97
--- NOTE | 2025-02-26 16:34 | PD.RESPRO ---
Documentation for date of: 02/26/25 Subjective Subjective Interval history: Patient is seen and examined bedside No acute overnight events. Reported that her abdominal pain is decreased, but still complaining of weakness in the lower extremities Vitals are stable. On physical examination 5/5 power is noted in bilateral lower extremities Patient is able to tolerate liquid diet and is okay with starting on regular diet Resumed her regular diet Labs showed WBC 8.2, Hb 10.4, B12 is in low normal range Potassium is 3.2 for which 60 mEq of oral potassium is given Lipase levels downtrended to 155 Dr. Giordano is consulted for lower extremity weakness Exam Vital Signs Temp Pulse Resp BP Pulse Ox O2 Del Method 97.1 F 78 19 120/78 97 Room Air 02/26/25 16:00 02/26/25 16:00 02/26/25 16:00 02/26/25 16:00 02/26/25 16:00 02/26/25 16:00 Narrative Exam General: Awake. HEENT: Normocephalic, atraumatic, mucous membranes dry Heart: Regular rate and rhythm, no murmurs. Lungs: Clear to auscultation with no wheezing or crackles. Abdomen: Soft, nondistended, nontender, positive bowel sounds. ?No guarding or rebound tenderness. Neurologic: Alert and oriented x3, no gross neurological deficit, and patient able to move all 4 extremities. Extremities: No edema. Skin: No rash or ecchymoses. Objective Labs 02/26/25 04:10 02/26/25 04:10 Labs: Laboratory Results - last 24 hr 02/25/25 02/26/25 05:00 04:10 WBC 8.2 RBC 2.84 L Hgb 10.4 L Hct 30.1 L MCV 106 H MCH 36.6 H MCHC 34.6 RDW Std Deviation 58.4 H Plt Count 301 D Neut % (Auto) 67 Lymph % (Auto) 22 [place] % (Auto) 7 Eos % (Auto) 3 Baso % (Auto) 1 Neut # (Auto) 5.5 Lymph # (Auto) 1.8 [place] # (Auto) 0.6 Eos # (Auto) 0.2 Baso # (Auto) 0.0 Immature Gran # (Auto) 0.04 H Absolute Nucleated RBC 0.00 Immature Gran % 1 H Nucleated RBC % 0 Sodium 138 Potassium 3.2 L D Chloride 106 Carbon Dioxide 21.9 Anion Gap 10 BUN < 5 L Creatinine 0.3 L Estim Creat Clear Calc 265.5 eGFR > 60 BUN/Creatinine Ratio 17 Glucose 55 L Calculated Osmolality 270 L Calcium 8.1 L Magnesium 1.8 Lipase 155 H D Vitamin B12 302 Quality Measures Quality Measures none Assessment & Plan Assessment Current Active Medications: Generic Name Dose Route Start Last Admin Trade Name Freq PRN Reason Stop Dose Admin Acetaminophen 650 mg 02/24/25 11:34 Acetaminophen 325 Mg Tablet PO 03/26/25 11:33 Q6H PRN Fever >100.3 Enoxaparin Sodium 40 mg 02/25/25 16:45 02/26/25 09:56 Enoxaparin Sod Inj 40 Mg/0.4 Ml Syringe SC 03/11/25 16:44 40 mg QDAY SHAE Administration Folic Acid 1 mg 02/25/25 17:00 02/26/25 09:56 Folic Acid 1 Mg Tablet PO 03/27/25 16:59 1 mg QDAY SHAE Administration Hydromorphone HCl 0.5 mg 02/24/25 11:34 02/26/25 16:17 Hydromorphone Inj 2 Mg/Ml Vial IVP 03/01/25 11:33 0.5 mg Q3HR PRN Administration Pain 7-10 Lactated Ringer's 1,000 mls @ 100 mls/hr 02/26/25 11:16 02/26/25 11:28 Lactated Ringers IV 02/26/25 21:15 100 mls/hr .Q10H ONE Administration Lorazepam 0.5 mg 02/25/25 21:34 02/25/25 21:48 Lorazepam 0.5 Mg Tablet PO 03/02/25 21:33 0.5 mg Q4HR PRN Administration CIWA Score 2-6 Lorazepam 1 mg 02/25/25 21:34 Lorazepam 0.5 Mg Tablet PO 03/02/25 21:33 Q4HR PRN CIWA SCORE 7-11 Ondansetron HCl 4 mg 02/24/25 11:34 02/25/25 21:42 Ondansetron Inj 2 Mg/Ml Inj 2 Ml IV 03/26/25 11:33 4 mg Q6H PRN Administration NAUSEA OR VOMITING Protocol Thiamine HCl 100 mg 02/25/25 17:00 02/26/25 09:56 Thiamine 100 Mg Tablet PO 03/27/25 16:59 100 mg QDAY SHAE Administration Vitamin B Complex/Vit C/Folic Acid 1 tab 02/26/25 11:30 02/26/25 11:26 Vit B12/Vit C/Fa (Nephrovite) Tablet PO 03/28/25 11:29 1 tab QDAY SHAE Administration Plan A 24-year-old female with no significant past medical history came to the hospital with chief complaints of abdominal Pain, vomitings and admitted for acute pancreatitis # Acute pancreatitis -Patient presented to the hospital with epigastric pain radiating to the back associated with vomitings -Labs showed lipase of 1048, WBC 16.6, Hb 14.4 -Patient had history of alcohol intake-4 shots of spirit, greasy food intake before the onset of pain -Gallbladder ultrasound showed cholelithiasis with CBD 0.4 cm, no cholecystitis Plan -Patient received 1 L of IV bolus NS in the ED -Started on IV fluids maintenance, LR at 100 mL/h -Hydromorphone 0.5 Mg every third hourly as needed for pain -Ondansetron as needed -Started on clear liquid diet -advanced to regular diet, tolerating well -Patient is complaining of epigastric pain with burning sensation, added pantoprazole 40 Mg p.o. daily -Dr. Baldwin was consulted in view of gallstones, recommended surgery to the patient either in the hospital or on outpatient basis-patient is thinking about the procedure # Hypokalemia, resolving # Metabolic acidosis -Potassium at the time of admission is 3.3, bicarb is 19.1 -potassium is 3.2, bicarb is 21.9 as of today -Likely due to the vomitings and decreased oral intake during the hospital stay -60 mEq of oral potassium is given -Started on ondansetron as needed -Will monitor electrolytes, replete accordingly #Lower extremity weakness -Patient has been complaining of lower extremity weakness, was evaluated by PT, who found her weak on lower extremity. Patient is also complaining of some numbness and vision changes. -We will obtain neurology consult. # Asymptomatic UTI -Urine analysis showed turbid urine with 1+ ketonuria, 14 RBC, 156 WBC but patient does not have any symptoms of UTI -Will hold antibiotics for now Hospital Maintenance: Dispo: MedSurg DVT ppx: lovenox GI ppx: Protonix Diet: Regular diet IV lines: Peripheral Code status: Full code Patient plan of care was discussed with the attending physician, Dr. Roxy Johnston, PGY1 Attending Provider Attestation/Addendum I attest that I was physically present for the evaluation, physical examination, lab and imaging review of the patient with the residents. I discussed the case with the residents and agree with the findings and plans of care as documented above. At bedside today, patient is states she is feeling better. Diet was advanced to regular diet, she has been tolerating well. Her abdominal pain has almost resolved. Denies any nausea or vomiting. Patient still complains of lower extremity weakness and numbness. She was evaluated by PT, was found to be weaker on lower extremity, also complained about some blurriness in her eye. We will obtain neurology consult. Her potassium today is 3.2, repleted accordingly. WBC continues to be downtrending. Vital signs are stable. Sheri Ramsey MD
[2025-02-26 20:00] VITALS: BP 122/91; PULSE 113; RESP 19; TEMP 36.4; O2SAT 96
--- NOTE | 2025-02-26 22:41 | PC.NURSE ---
called Dr. Buckner regarding patient frequently urinating that started today 02/26/25 around 1200 per patient. Patient states there is no burning or pain when she urinates but she just feels the pressure that she has to go all the time. Patient also has not had a bowel movement since 02/22/25 but patient is passing gas, bowels are active. No other complaints at this time. New orders received.
[2025-02-26] MEDS: cefTRIAXone/D5w 1gm IV premix 1 G/50 ML BAG IV (22:57)
[2025-02-27] VITALS: BP 130/91; PULSE 87; RESP 17; TEMP 36.4; O2SAT 99
[2025-02-27 04:00] VITALS: BP 122/83; PULSE 94; RESP 17; TEMP 36.2; O2SAT 99
[2025-02-27] MEDS: HYDROmorphone INJ 2 MG/ML VIAL 0.5 MG IVP ×6 (04:10→21:00)
[2025-02-27 06:29] LABS: Anion Gap 9 (7-16); BUN/Creatinine Ratio 13 Ratio (12-20); Blood Urea Nitrogen < 5 mg/dL (9-23); Calcium 8.8 mg/dL (8.3-10.6); Carbon Dioxide 26.3 mMol/L (20.0-31.0); Chloride 107 mMol/L (98-107); Creatinine (Component) 0.4 mg/dL (0.6-1.3); Estimated Creatinine Clearance 199.1 mL/min (>60); Glucose 74 mg/dL (74-106); Magnesium 1.9 mg/dL (1.6-2.6); Osmolality,Calculated 279 (275-295); Potassium 4.2 mMol/L (3.4-5.1); Sodium 142 mMol/L (136-145); eGFR > 60 See Note
[2025-02-27 06:34] LABS: Basophils % (Auto) 1 % (0-2.5); Eosinophils # (Auto) 0.3 Thou/mm3 (0.0-0.5); Eosinophils % (Auto) 5 % (0-10); Hematocrit 31.8 % (36.0-46.0); Hemoglobin 10.6 g/dL (12.0-16.0); Immature Granulocytes % (Auto) 0 % (0-0); Immature Granulocytes Auto 0.02 Thou/mm3 (0.00-0.00); Lymphocytes # (Auto) 1.7 Thou/mm3 (1.0-4.8); Lymphocytes % (Auto) 27 % (10-50); Mean Corpuscular HGB Conc 33.3 g/dl (31.0-37.0); Mean Corpuscular Hemoglobin 36.2 pg (25.0-35.0); Mean Corpuscular Volume 109 fL (80-100); Monocytes # (Auto) 0.6 Thou/mm3 (0.0-0.8); Monocytes % (Auto) 10 % (0-12); Neutrophils # (Auto) 3.6 Thou/mm3 (1.8-7.7); Neutrophils % (Auto) 57 % (37-80); Nucleated Red Blood Cell % 0 /100 WBC (0); Platelet Count 374 Thou/mm3 (140-440); RDW Standard Deviation 59.7 fL (36.4-46.3); Red Blood Count 2.93 Miln/mm3 (4.00-5.20); White Blood Count 6.4 Thou/mm3 (3.6-11.0)
[2025-02-27 08:00] VITALS: BP 121/95; PULSE 80; RESP 18; TEMP 36.2; O2SAT 96
[2025-02-27 08:33] VITALS: BP 123/95; BP 132/101; BP 138/98; PULSE 90; PULSE 91; PULSE 93
[2025-02-27] MEDS: FOLIC ACID 1 MG TABLET PO (09:33)
[2025-02-27] MEDS: VIT B12/Vit C/FA (Nephrovite) TABLET 1 TAB PO (09:33)
[2025-02-27] MEDS: ENOXAPARIN SOD INJ 40 MG/0.4 ML SYRINGE SC (09:33)
[2025-02-27] MEDS: THIAMINE 100 MG TABLET PO (09:33)
[2025-02-27 09:50] LABS: Lipase 66 U/L (12-53)
--- NOTE | 2025-02-27 11:33 | PC.SS ---
SS follow up note; Neurology consult pending. WBC being monitored, patient on IV fluids, when patient is medically cleared she will return back home.
[2025-02-27 12:00] VITALS: BP 114/53; PULSE 72; RESP 18; TEMP 36.2; O2SAT 95
--- NOTE | 2025-02-27 15:12 | ESPR_ITS ---
<Statement entered by Jan Clifton MD - 02/28/25 13:29> Senior Resident Attestation: I supervised/discussed management plan with technical support intern physician Dr. Johnston, and was involved in the care of this patient. I personally saw and examined the patient and discussed the assessment and plan with the entire medicine team, including my attending. I agree with the assessment and plan as documented. Patient's care was discussed with attending physician, Dr. Ramsey. Jan Clifton MD PGY-2. Documentation for date of: 02/27/25 Subjective Subjective Interval history: Patient is seen and examined at bedside No acute overnight events. Patient is still complaining of weakness in the lower extremities without any bowel or bladder incontinence, no sensory loss, power is 5/5 on examination. Tolerating regular diet well Vitals are stable. Labs showed hemoglobin 10.6, lipase 66 Patient is not willing for surgery in the hospital, recommended to get outpatient cholecystectomy as soon as possible Waiting for Dr. Giordano's recommendations, will discharge tomorrow Exam Vital Signs Temp Pulse Resp BP Pulse Ox O2 Del Method 97.1 F 72 18 114/53 L 95 Room Air 02/27/25 12:00 02/27/25 12:00 02/27/25 12:00 02/27/25 12:00 02/27/25 12:00 02/27/25 12:00 Narrative Exam General: Awake. HEENT: Normocephalic, atraumatic, mucous membranes dry Heart: Regular rate and rhythm, no murmurs. Lungs: Clear to auscultation with no wheezing or crackles. Abdomen: Soft, nondistended, nontender, positive bowel sounds. ?No guarding or rebound tenderness. Neurologic: Alert and oriented x3, no gross neurological deficit, and patient able to move all 4 extremities. Extremities: No edema. Skin: No rash or ecchymoses. Objective Labs 02/28/25 05:10 02/28/25 05:10 Labs: Laboratory Results - last 24 hr 02/27/25 04:27 WBC 6.4 RBC 2.93 L Hgb 10.6 L Hct 31.8 L MCV 109 H MCH 36.2 H MCHC 33.3 RDW Std Deviation 59.7 H Plt Count 374 D Neut % (Auto) 57 Lymph % (Auto) 27 Morgan % (Auto) 10 Eos % (Auto) 5 Baso % (Auto) 1 Neut # (Auto) 3.6 Lymph # (Auto) 1.7 Morgan # (Auto) 0.6 Eos # (Auto) 0.3 Baso # (Auto) 0.0 Immature Gran # (Auto) 0.02 H Absolute Nucleated RBC 0.00 Immature Gran % 0 Nucleated RBC % 0 Sodium 142 Potassium 4.2 D Chloride 107 Carbon Dioxide 26.3 Anion Gap 9 BUN < 5 L Creatinine 0.4 L Estim Creat Clear Calc 199.1 eGFR > 60 BUN/Creatinine Ratio 13 Glucose 74 Calculated Osmolality 279 Calcium 8.8 Magnesium 1.9 Lipase 66 H D Quality Measures Quality Measures none Assessment & Plan Assessment Current Active Medications: Generic Name Dose Route Start Last Admin Trade Name Freq PRN Reason Stop Dose Admin Acetaminophen 650 mg 02/24/25 11:34 Acetaminophen 325 Mg Tablet PO 03/26/25 11:33 Q6H PRN Fever >100.3 Enoxaparin Sodium 40 mg 02/25/25 16:45 02/27/25 09:33 Enoxaparin Sod Inj 40 Mg/0.4 Ml Syringe SC 03/11/25 16:44 40 mg QDAY SHAE Administration Folic Acid 1 mg 02/25/25 17:00 02/27/25 09:33 Folic Acid 1 Mg Tablet PO 03/27/25 16:59 1 mg QDAY SHAE Administration Hydromorphone HCl 0.5 mg 02/24/25 11:34 02/27/25 14:17 Hydromorphone Inj 2 Mg/Ml Vial IVP 03/01/25 11:33 0.5 mg Q3HR PRN Administration Pain 7-10 Ceftriaxone Sodium/Dextrose 1 g in 50 mls @ 100 mls/hr 02/26/25 22:40 02/26/25 23:27 Rocephin/D5w 1gm Iv Premix IV 03/05/25 22:39 Infused HS SHAE Infusion Lorazepam 0.5 mg 02/25/25 21:34 02/25/25 21:48 Lorazepam 0.5 Mg Tablet PO 03/02/25 21:33 0.5 mg Q4HR PRN Administration CIWA Score 2-6 Lorazepam 1 mg 02/25/25 21:34 Lorazepam 0.5 Mg Tablet PO 03/02/25 21:33 Q4HR PRN CIWA SCORE 7-11 Ondansetron HCl 4 mg 02/24/25 11:34 02/25/25 21:42 Ondansetron Inj 2 Mg/Ml Inj 2 Ml IV 03/26/25 11:33 4 mg Q6H PRN Administration NAUSEA OR VOMITING Protocol Sennosides 1 tab 02/26/25 22:39 Senna/Docusate Sod 1 Tab Tablet PO 03/28/25 22:38 QDAY PRN CONSTIPATION Protocol Thiamine HCl 100 mg 02/25/25 17:00 02/27/25 09:33 Thiamine 100 Mg Tablet PO 03/27/25 16:59 100 mg QDAY SHAE Administration Vitamin B Complex/Vit C/Folic Acid 1 tab 02/26/25 11:30 02/27/25 09:33 Vit B12/Vit C/Fa (Nephrovite) Tablet PO 03/28/25 11:29 1 tab QDAY SHAE Administration Plan A 24-year-old female with no significant past medical history came to the hospital with chief complaints of abdominal Pain, vomitings and admitted for acute pancreatitis # Acute pancreatitis, resolved -Patient presented to the hospital with epigastric pain radiating to the back associated with vomitings -Labs showed lipase of 1048, WBC 16.6, Hb 14.4 -Patient had history of alcohol intake-4 shots of spirit, greasy food intake before the onset of pain -Gallbladder ultrasound showed cholelithiasis with CBD 0.4 cm, no cholecystitis Plan -Patient received 1 L of IV bolus NS in the ED -Stopped maintenance fluids and patient is able to tolerate regular diet well -Hydromorphone 0.5 Mg every third hourly as needed for pain -Ondansetron as needed -Patient is complaining of epigastric pain with burning sensation, added pantoprazole 40 Mg p.o. daily -Dr. Baldwin was consulted in view of gallstones, recommended surgery to the patient either in the hospital or on outpatient basis-patient wants to get procedure on the outpatient basis # Hypokalemia, resolved # Metabolic acidosis, resolved -Potassium at the time of admission is 3.3, bicarb is 19.1 -potassium is 4.2, bicarb is 26.3 as of today -Likely due to the vomitings and decreased oral intake during the hospital stay -Started on ondansetron as needed -Will monitor electrolytes, replete accordingly #Lower extremity weakness -Patient has been complaining of lower extremity weakness, was evaluated by PT, who found her weak on lower extremity. -Patient is also complaining of some numbness and vision changes. -Neurology consultation was done, recommendations pending # Asymptomatic UTI -Urine analysis showed turbid urine with 1+ ketonuria, 14 RBC, 156 WBC but patient does not have any symptoms of UTI -Will hold antibiotics for now Hospital Maintenance: Dispo: MedSurg DVT ppx: lovenox GI ppx: Protonix Diet: Regular diet IV lines: Peripheral Code status: Full code Patient plan of care was discussed with the attending physician, Dr. Ramsey and senior resident Dr. Elodia Johnston, PGY1 Attending Provider Attestation/Addendum I attest that I was physically present for the evaluation, physical examination, lab and imaging review of the patient with the residents. I discussed the case with the residents and agree with the findings and plans of care as documented above. At bedside today, patient continues to feel well and does not have new complaints.? She continues to have lower limb weakness.? Discussed about need for cholecystectomy, patient is stated she wants to wait, follow-up with general surgery outpatient and have the surgery done later electively.? Discussed with general surgery, in agreement awaiting neurology recommendation regarding lower limb weakness. Sheri Ramsey MD
[2025-02-27 15:59] VITALS: BMI 29.0
[2025-02-27 20:00] VITALS: BP 127/88; PULSE 87; RESP 17; TEMP 36.2; O2SAT 98
[2025-02-27] MEDS: cefTRIAXone/D5w 1gm IV premix 1 G/50 ML BAG IV (21:01)
[2025-02-28] VITALS: BP 127/93; PULSE 83; RESP 17; TEMP 36.1; O2SAT 100
[2025-02-28] MEDS: HYDROmorphone INJ 2 MG/ML VIAL 0.5 MG IVP ×3 (00:08→11:29)
[2025-02-28 04:00] VITALS: BP 119/95; PULSE 79; RESP 17; TEMP 36.3; O2SAT 99
[2025-02-28 05:35] LABS: Basophils % (Auto) 1 % (0-2.5); Eosinophils # (Auto) 0.2 Thou/mm3 (0.0-0.5); Eosinophils % (Auto) 4 % (0-10); Hematocrit 32.9 % (36.0-46.0); Hemoglobin 11.2 g/dL (12.0-16.0); Immature Granulocytes % (Auto) 0 % (0-0); Immature Granulocytes Auto 0.01 Thou/mm3 (0.00-0.00); Lymphocytes # (Auto) 1.7 Thou/mm3 (1.0-4.8); Lymphocytes % (Auto) 33 % (10-50); Mean Corpuscular Volume 106 fL (80-100); Monocytes # (Auto) 0.5 Thou/mm3 (0.0-0.8); Monocytes % (Auto) 9 % (0-12); Neutrophils # (Auto) 2.8 Thou/mm3 (1.8-7.7); Neutrophils % (Auto) 53 % (37-80); Nucleated Red Blood Cell % 0 /100 WBC (0); Platelet Count 374 Thou/mm3 (140-440); RDW Standard Deviation 58.5 fL (36.4-46.3); Red Blood Count 3.11 Miln/mm3 (4.00-5.20); White Blood Count 5.2 Thou/mm3 (3.6-11.0)
[2025-02-28 06:18] LABS: Alanine Aminotransferase 11 U/L (10-49); Albumin, Serum 3.6 gm/dL (3.5-5.0); Albumin/Globulin Ratio 1.4 (1.2-2.2); Alkaline Phosphatase 119 U/L (46-116); Anion Gap 9 (7-16); Aspartate Amino Transferase 28 U/L (0-34); BUN/Creatinine Ratio 13 Ratio (12-20); Bilirubin,Total 0.3 mg/dL (0.3-1.2); Blood Urea Nitrogen < 5 mg/dL (9-23); Calcium 9.1 mg/dL (8.3-10.6); Calcium (Corrected) 9.4 mg/dL (8.5-10.1); Chloride 107 mMol/L (98-107); Creatinine (Component) 0.4 mg/dL (0.6-1.3); Estimated Creatinine Clearance 194.4 mL/min (>60); Globulin 2.6 gm/dL (2.3-3.5); Glucose 90 mg/dL (74-106); Osmolality,Calculated 280 (275-295); Potassium 3.8 mMol/L (3.4-5.1); Sodium 142 mMol/L (136-145); Total Protein 6.2 gm/dL (5.7-8.2); eGFR > 60 See Note
[2025-02-28 07:26] VITALS: BP 129/91; PULSE 74; RESP 18; TEMP 36.2; O2SAT 99
[2025-02-28 08:10] VITALS: BP 120/86; BP 129/91; BP 143/86; PULSE 74; PULSE 77; PULSE 98
--- NOTE | 2025-02-28 09:00 | PC.SS ---
SS follow up note; SS met with patient in regards to discharge plan, SS inquired about PT recommending SNF, patient reports she would like to discharge home, SS inquired about HH and patient agreeable to have HH follow after discharge, no preference in HH agency.
[2025-02-28] MEDS: FOLIC ACID 1 MG TABLET PO (09:40)
[2025-02-28] MEDS: VIT B12/Vit C/FA (Nephrovite) TABLET 1 TAB PO (09:41)
[2025-02-28] MEDS: THIAMINE 100 MG TABLET PO (09:42)
[2025-02-28] MEDS: ENOXAPARIN SOD INJ 40 MG/0.4 ML SYRINGE SC (09:44)
[2025-02-28 10:24] LABS: Folate 13.83 ng/mL (>5.38); Vitamin B12 381 pg/mL (211-911)
--- NOTE | 2025-02-28 10:41 | PD.RESCONSUL ---
HPI Data of Consult Requesting Physician: Sheri Ramsey MD Admitting Provider: Bill Evans MD Attending Provider: Sheri Ramsey MD Primary Care Provider: Physician No Primary/Family Consult Narrative History of present illness: Throat virus 24-year-old woman with no significant past medical history who presented to the ED with chief complaint abdominal pain associated to nausea and vomiting. Significant labs on admission show leukocytosis, acidosis, lipase was elevated 1048, gallbladder ultrasound showed cholelithiasis with no duct obstruction CBD 0.4 cm. and patient was admitted for further treatment and management of acute pancreatitis. Neurology was consulted for generalized weakness. Patient stated that she has been presenting bilateral lower extremity weakness associated to paresthesias and knee pain for a long time and that initially talk to her PCP that told her that was having vitamin D deficiency otherwise her symptoms did not improve, patient is a heavy drinker mixing hard liquor with beer during the weekends. Past medical history: None relevant Past surgical history: None relevant Family history: None relevant Social history: Used to be heavy drinker during the weekends, mixing hard liquor with beer, takes couple of shots only to 3 times a week, denied recreational drugs or smoking Travel history: None relevant Allergies: No known allergies cc:: cc: Sheri Ramsey MD Exam Vital Signs Temp Pulse Resp BP Pulse Ox O2 Del Method 97.1 F 77 18 120/86 H 99 Room Air 02/28/25 08:10 02/28/25 08:10 02/28/25 08:10 02/28/25 08:10 02/28/25 08:00 02/28/25 08:10 Narrative Exam General: No acute distress, well appearing, alert, interactive. HEENT: NC/AT, PERRL, EOMI, Good conjugate gaze, moist mucous membranes, oropharynx clear. Neck: Supple, No masses, No adenopathy, carotid pulse 2+ bilaterally without bruits, No JVD, normal range of motion. Chest: Symmetrical, atraumatic, and with equal expansion , Nontender on palpation no deformity and no crepitus. CVS: S1 and S2 present, Regular rate and rhythm, No murmurs, rubs or gallops perceived during auscultation. Lungs: Normal respiratory effort, CTAB, no wheezing, rhonchi or rales perceived during auscultation, No intercostal or subcostal retraction. Abdomen : Soft, no tenderness to palpation, no guarding ,no rebound, +BS, no organomegaly. Extremities: No edema, warm well perfused, normal tone and ROM, strength and sensation intact, cap refill less than 2, +2 dp equal bilaterally, able to move all 4 extremities spontaneously. Skin: Intact, no rashes, no lesions, no erythema or jaundice noted Neuro: AOx4, reflex symmetric and sensation normal, no focal neurologic deficits noted, GCS 15, strength 5/5 upper and lower extremities Psych: Appropriate mood and affect. Results Labs 02/28/25 05:10 02/28/25 05:10 Labs: Short CBC 02/28/25 Range/Units 05:10 WBC 5.2 (3.6-11.0) Thou/mm3 Hgb 11.2 L (12.0-16.0) g/dL Hct 32.9 L (36.0-46.0) % Plt Count 374 (140-440) Thou/mm3 BMP 02/28/25 05:10 Sodium 142 Potassium 3.8 Chloride 107 Carbon Dioxide 26.0 BUN < 5 L Creatinine 0.4 L Glucose 90 Calcium 9.1 Liver Function 02/28/25 Range/Units 05:10 Total Bilirubin 0.3 (0.3-1.2) mg/dL AST 28 (0-34) U/L ALT 11 (10-49) U/L Alkaline Phosphatase 119 H (46-116) U/L Albumin 3.6 (3.5-5.0) gm/dL Quality Measures Quality Measures none Medications Home Medications and Allergies Home Medications ?Medication ?Instructions ?Recorded ?Confirmed ?Type ergocalciferol (vitamin D2) 1,250 1,250 mcg PO .ONCE WEEK 02/24/25 02/24/25 History mcg (50,000 unit) capsule folic acid 1 mg tablet 1 mg PO DAILY 02/24/25 02/24/25 History Allergies Allergy/AdvReac Type Severity Reaction Status Date / Time No Known Allergies Allergy Verified 02/24/25 07:47 Visit Medications Acetaminophen (Acetaminophen 325 Mg Tablet) 650 mg PO Q6H PRN PRN Reason: Fever >100.3 Stop: 03/26/25 11:33 Enoxaparin Sodium (Enoxaparin Sod Inj 40 Mg/0.4 Ml Syringe) 40 mg SC QDAY [facility] Stop: 03/11/25 16:44 Last Admin: 02/28/25 09:44 Dose: 40 mg Folic Acid (Folic Acid 1 Mg Tablet) 1 mg PO QDAY [facility] Stop: 03/27/25 16:59 Last Admin: 02/28/25 09:40 Dose: 1 mg Hydromorphone HCl (Hydromorphone Inj 2 Mg/Ml Vial) 0.5 mg IVP Q3HR PRN PRN Reason: Pain 7-10 Stop: 03/01/25 11:33 Last Admin: 02/28/25 03:56 Dose: 0.5 mg Ceftriaxone Sodium/Dextrose (Rocephin/D5w 1gm Iv Premix) 1 g in 50 mls @ 100 mls/hr IV HS [facility] Stop: 03/05/25 22:39 Last Infusion: 02/27/25 21:31 Dose: Infused Lorazepam (Lorazepam 0.5 Mg Tablet) 0.5 mg PO Q4HR PRN PRN Reason: CIWA Score 2-6 Stop: 03/02/25 21:33 Last Admin: 02/25/25 21:48 Dose: 0.5 mg Lorazepam (Lorazepam 0.5 Mg Tablet) 1 mg PO Q4HR PRN PRN Reason: CIWA SCORE 7-11 Stop: 03/02/25 21:33 Ondansetron HCl (Ondansetron Inj 2 Mg/Ml Inj 2 Ml) 4 mg IV Q6H PRN; Protocol PRN Reason: NAUSEA OR VOMITING Stop: 03/26/25 11:33 Last Admin: 02/25/25 21:42 Dose: 4 mg Sennosides (Senna/Docusate Sod 1 Tab Tablet) 1 tab PO QDAY PRN; Protocol PRN Reason: CONSTIPATION Stop: 03/28/25 22:38 Thiamine HCl (Thiamine 100 Mg Tablet) 100 mg PO QDAY [facility] Stop: 03/27/25 16:59 Last Admin: 02/28/25 09:42 Dose: 100 mg Vitamin B Complex/Vit C/Folic Acid (Vit B12/Vit C/Fa (Nephrovite) Tablet) 1 tab PO QDAY [facility] Stop: 03/28/25 11:29 Last Admin: 02/28/25 09:41 Dose: 1 tab Discontinued Medications Hydrocodone Bitart/Acetaminophen (Hydrocodone/Apap 5/325 Tablet) 1 tab PO X1 ONE Stop: 02/24/25 08:02 Last Admin: 02/24/25 08:09 Dose: 1 tab Piperacillin/Tazobactam/Dextrose (Zosyn) 3.375 gm in 50 mls @ 100 mls/hr IV X1 ONE Stop: 02/24/25 11:37 Last Infusion: 02/24/25 12:30 Dose: Infused Sodium Chloride (Ns) 1,000 mls @ 999 mls/hr IV .Q1H1M ONE Stop: 02/24/25 12:08 Last Infusion: 02/24/25 14:20 Dose: Infused Lactated Ringer's (Lactated Ringers) 1,000 mls @ 125 mls/hr IV .Q8H [facility] Stop: 03/26/25 11:44 Last Admin: 02/25/25 04:07 Dose: 125 mls/hr Magnesium Sulfate (Magnesium Sulfate Ivpb) 4 gm in 50 mls @ 12.5 mls/hr IV X1 ONE Stop: 02/25/25 12:37 Last Admin: 02/25/25 08:59 Dose: 12.5 mls/hr Lactated Ringer's (Lactated Ringers) 1,000 mls @ 125 mls/hr IV .Q8H [facility] Stop: 02/26/25 05:38 Last Admin: 02/26/25 00:07 Dose: 125 mls/hr Magnesium Sulfate (Magnesium Sulfate Ivpb) 2 gm in 50 mls @ 25 mls/hr IV X1 ONE Stop: 02/26/25 10:59 Last Admin: 02/26/25 09:57 Dose: 25 mls/hr Lactated Ringer's (Lactated Ringers) 1,000 mls @ 100 mls/hr IV .Q10H ONE Stop: 02/26/25 21:15 Last Infusion: 02/26/25 21:28 Dose: Infused Morphine Sulfate (Morphine Sulf Inj 10 Mg/Ml Vial) 4 mg IVP X1 ONE Stop: 02/24/25 11:09 Last Admin: 02/24/25 11:48 Dose: 4 mg Ondansetron HCl (Ondansetron Odt 4 Mg Tabrap) 4 mg PO X1 ONE; Protocol Stop: 02/24/25 08:02 Last Admin: 02/24/25 08:10 Dose: 4 mg Ondansetron HCl (Ondansetron Inj 2 Mg/Ml Inj 2 Ml) 4 mg IV X1 ONE; Protocol Stop: 02/24/25 11:09 Last Admin: 02/24/25 11:47 Dose: 4 mg Pantoprazole Sodium (Pantoprazole 40 Mg Tablet) 40 mg PO QDAY SHAE Stop: 03/26/25 11:44 Last Admin: 02/26/25 10:34 Dose: Not Given Potassium Chloride (Potassium Chloride 20 Meq Tabcr) 40 meq PO X1 ONE Stop: 02/26/25 09:00 Last Admin: 02/26/25 09:56 Dose: 40 meq Potassium Chloride (Potassium Chloride 20 Meq Tabcr) 20 meq PO X1 ONE Stop: 02/26/25 10:29 Last Admin: 02/26/25 11:26 Dose: 20 meq Sennosides (Senna/Docusate Sod 1 Tab Tablet) 1 tab PO X1 ONE; Protocol Stop: 02/26/25 22:40 Last Admin: 02/26/25 23:01 Dose: Not Given Assessment & Plan Plan #Alcohol related polyneuropathy Patient was admitted for acute pancreatitis possibly related to gallstone pancreatitis vs alcohol induced Patient has past medical history of heavy alcohol drinking Patient endorsed that has been presenting bilateral lower extremity weakness for a long time associated to paresthesias Folate, B12 within normal limits Thiamine pending Plan: ? Per neurology standpoint patient can be discharged with outpatient physical therapy with home health ? Follow-up with neurology upon discharge in 2 weeks for outpatient EMG and EMT #Acute pancreatitis resolved Plan: ? Continue management per primary team Patient discussed with my attending Dr Pasquale Colby MD PGY-3 Disclaimer: Despite multiple revisions, due to the dictation software being used, the document bellow may not be free of grammatical errors including phonetic/typographic errors. However, this does not deter from our commitment to providing health care in the patient's best interest in mind. Attending Provider Attestation/Addendum I personally have reviewed the patient's chart independently and I agreed with resident's findings, assessment and plan of care. Patient most likely has experienced exacerbation of chronic polyneuropathy that is induced by alcoholism. Will check vitamin B12 vitamin B-1 and folate. Follow-up as an outpatient to go over the EMG nerve conduction study. Patient will benefit from home health physical therapy. Noted that she has committed to quit drinking.
[2025-02-28 11:35] VITALS: BP 122/88; PULSE 98; RESP 16; TEMP 36.5; O2SAT 98
[2025-02-28 11:40] LABS: Creatine Kinase 15 U/L (34-171)
--- NOTE | 2025-02-28 11:45 | PC.SS ---
Addendum entered by Bess Hogan 02/28/25 11:58: SS follow up note; [facility] will contact patient in regards to delivery. Original Note: SS follow up note; SS was contacted by Judith from PT informing SS that patient needs a Wheelchair and outpatient PT. SS sent Referrals through [facility] as well as faxed outpatient PT order.
[2025-02-28] MEDS: SENNA/DOCUSATE SOD 1 TAB TABLET PO (14:15)
[2025-02-28] MEDS: Milk Of Magnesia Susp 30 ML UDC PO (14:15)
[2025-02-28] MEDS: ACETAMINOPHEN 325 MG TABLET 650 MG PO (14:15)
--- NOTE | 2025-02-28 14:44 | PD.RESDS ---
Planned Discharge Date 02/28/25 DS: Providers Provider Date of admission: 02/24/25 11:34 Primary care physician: Physician No Primary/Family Admitting Provider: Bill Evans MD Attending Provider on Admission: Sheri Ramsey MD Consults: 02/25/25 10:34 Consult to General Surgery Routine Comment: Gall stones Consulting Provider: Lindsey Baldwin 02/25/25 13:58 Referral Physical Therapy Routine Comment: Physician Instructions: 02/26/25 10:14 Consult to Neurology / Tele-Neurology Urgent Comment: Weakness lower extremity, vision & speech affected Consulting Provider: Genaro Giordano Attending Provider on DC: Alfonso Johnston MD Discharging Provider: Alfonso Johnston MD DS: Diagnosis Problem List Completed Was Problem List Reviewed/Reconciled?: Yes Hospital Course Hospital Course Hospital course: A 24-year-old female with no significant past medical history presented to the ED with chief complaints of abdominal pain and vomiting since 2 days and admitted in the hospital for acute pancreatitis. Labs showed WBC 16.6, Hb 14.4, platelets 552, potassium 3.3, lipase 1048. Urine analysis showed turbid urine with 1+ ketones, 14 RBC, 156 WBC. Gallbladder ultrasound showed cholelithiasis with no duct obstruction with CBD 0.4 cm. Patient was treated with IV fluids, Dilaudid, multivitamin during the hospital stay, treated with potassium in view of hypokalemia and later patient developed mild weakness in the lower extremity for which neurologist Dr. 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 Dr. Arellano was consulted and recommended laparoscopic cholecystectomy either in the hospital or on outpatient basis, patient chose to follow-up in outpatient basis for laparoscopic cholecystectomy. physical therapy recommended to go to SNF, but patient wants to go to home Patient is discharged to home with home with for the following medications and recommendations -Follow-up with PCP within 1 week of discharge. If you do not have appointment, please follow-up with the [facility] with Dr. Johnston. Call [phone] to make an appointment. -Follow up with within 1 week of discharge. -Follow up with within 1 week of discharge for cholecystectomy -Take ketorolac 10 Mg p.o. every 8 hourly as needed -Continue multivitamin tablet p.o. 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 Ramsey and senior resident Dr. Elodia Johnston, PGY1 Time Spent with Patient Time attestation: Total time spent providing and/or coordinating discharge services: Time spent: Less than 30 minutes Home Health Home Health Referral Orders: 02/28/25 10:32 Home Health Referral Routine Reason For Exam: Lowe limb weakness Home-Bound The patient must either because of illness or injury, need the aid of supportive devices such as crutches, canes, wheelchairs, and walkers; the use of special transportation; or the assistance of another person in order to leave their place of residence; OR have a condition such that leaving his or her home is medically contraindicated. In addition, the patient also meets the following criteria: patient is normally unable to leave the home and leaving home requires considerable taxing effort. Addendum to Home Health Certification Practitioner's Certification: I certify that the patient has been under my care in the hospital and the care of attending physician (see below). We had a [id number] encounter on (see date below). My clinical findings indicate that the patient is home bound per the above criteria and the Home Health Services noted in these orders are medically necessary. The primary reason for the [id number] encounter is related to the fact that the patient requires home health services. Date Certifying [id number] Physician Encounter: 02/24/25 Physician's Name who will Assume Oversight for HH Services: Physician No Primary/Family SCRIPT MANAGER - Community Resources: No PT to Evaluate: Yes PT to evaluate and provide a treatmnet plan to increase patient's mobility and strength. Wound Care: No IV Therapy: No RN Safety Evaluation: Yes RN to evaluate and create a plan of care that will produce positive outcomes. Palliative Treatment: No Palliative treatment and evaluate the need for hospice. Home Health Aide - Personal Care: No Home Health Aide to assist with any ADL's. Exam Vital Signs Temp Pulse Resp BP Pulse Ox O2 Del Method 97.7 F 98 16 122/88 H 98 Room Air 02/28/25 11:35 02/28/25 11:35 02/28/25 11:35 02/28/25 11:35 02/28/25 11:35 02/28/25 11:35 Narrative Exam General: Awake. HEENT: Normocephalic, atraumatic, mucous membranes dry Heart: Regular rate and rhythm, no murmurs. Lungs: Clear to auscultation with no wheezing or crackles. Abdomen: Soft, nondistended, nontender, positive bowel sounds. ?No guarding or rebound tenderness. Neurologic: Alert and oriented x3, no gross neurological deficit, and patient able to move all 4 extremities. Extremities: No edema. Skin: No rash or ecchymoses. Discharge Plan Plan Patient Disposition: Home w/HOME HEALTH Disposition Comment: Stable Care Plan Goals: -Follow-up with PCP within 1 week of discharge. If you do not have appointment, please follow-up with the [facility] with Dr. Johnston. Call [phone] to make an appointment. -Follow up with within 1 week of discharge. -Follow up with within 1 week of discharge for cholecystectomy -Take ketorolac 10 Mg p.o. every 8 hourly as needed -Continue multivitamin tablet p.o. daily -Return to ED if symptoms persist or return Prescriptions/Referrals Prescriptions/Med Rec: New multivitamin Tablet 1 tab PO QAM Qty: 30 1RF ketorolac 10 mg tablet 10 mg PO Q8H PRN (Reason: pain) Qty: 20 0RF Rx Instructions: maximum total duration of 5 days from all oral, intranasal, or parenteral formulations thiamine HCl (vitamin B1) 100 mg tablet 100 mg PO QDAY Qty: 30 2RF No Action folic acid 1 mg tablet 1 mg PO DAILY Patient Comments: TAKE 1 TABLET BY MOUTH EVERY DAY FOR 30 DAYS ergocalciferol (vitamin D2) 1,250 mcg (50,000 unit) capsule 1,250 mcg PO .ONCE WEEK Patient Comments: TAKE 1 CAPSULE BY MOUTH EVERY WEEK acetaminophen 500 mg capsule 1,000 mg PO TID Qty: 30 0RF Referrals: Lindsey Baldwin MD [Physician] - (You will receive a phone call to confirm a follow-up appointment with me in 4 weeks) No Primary/Family,Physician [Primary Care Provider] - Patient/Caregiver Discharge Instructions Education Materials: Abdominal Pain, Understanding Pancreatitis Print Language: Telugu Stand Alone Forms: Keisha Award Info., Patient Portal Info Letter Discharge Order Discharge Orders: Discharge (Routine); Ordered 02/28/25 Ordered By: Alfonso Johnston Quality Discharge Quality Measures VTE prophylaxis MD Attestestation MD Attestation I attest that I was physically present for the evaluation, physical examination, lab and imaging review of the patient with the residents. I discussed the case with the residents and agree with the findings and plans of care as documented above. Sheri Ramsey MD
--- NOTE | 2025-03-02 08:35 | PC.CM ---
I reviewed notes and social worker aide set up patient with outpatient PT.
[2025-03-07 07:25] LABS: Vitamin B1 (Thiamine)* 18 nmol/L (8-30)
== END 2025-02-28 15:10 | disposition home health service (06) | DRG 282 ==
LOC: SERX 11:23 → SERHOLD 12:22 → S3NX 15:57
PROVIDERS: Nurse Practitioner Family; Psychiatry & Neurology Neurology; Admitting Provider Student in an Organized Health Care Education/Training Program; Emergency Provider Family Medicine; Visit Provider Student in an Organized Health Care Education/Training Program
DX: K85.90 Acute pancreatitis without necrosis or infection, unspecified (principal); K80.20 Calculus of gallbladder without cholecystitis without obstruction; E86.0 Dehydration; E87.6 Hypokalemia; E87.20 Acidosis, unspecified; R00.0 Tachycardia, unspecified; N39.0 Urinary tract infection, site not specified; F10.20 Alcohol dependence, uncomplicated; K82.8 Other specified diseases of gallbladder; G62.1 Alcoholic polyneuropathy
CPT/HCPCS: 36415; 76705; 80048; 80053; 80061; 81001; 81025; 82550; 82607; 82746; 83690; 83735; 84100; 84425; 84443; 85025; 87086; 96361; 96365; 96375; 97163; 99285; J0696; J1650; J2270; J2405; J2543; J3475; J3490; J7030; J7120; Q0162; A9270

== ENCOUNTER 2025-03-08 14:02 | Outpatient (AMB) | payer MEDICAID, SELFPAY ==
[2025-03-08 14:22] VITALS: BP 125/88; PULSE 83; RESP 18; TEMP 36.6; O2SAT 98
--- NOTE | 2025-03-08 14:22 | ACNOTE_ITS ---
Vital Signs 03/08/25 14:22 Weight 68.492 kg Weight Measurement Method Standing Scale BP 125/88 H Blood Pressure Source Automatic Cuff Blood Pressure Location Left Upper Arm Position Sitting Respiration 18 Pulse 83 Pulse Source Monitor Temp 97.8 F Temp Source Temporal Artery Scan Pulse Oximetry (%) 98 Oxygen Delivery Method Room Air Allergies/Meds Allergies & Medications Allergies No Known Allergies Allergy (Verified 04/08/25 14:02) Medication Reconciliation acetaminophen 500 mg capsule 1,000 mg (2 x 500 mg) PO TID #30 caps 10/13/22 [Rx Confirmed 04/08/25] ergocalciferol (vitamin D2) 1,250 mcg (50,000 unit) capsule 1,250 mcg PO .ONCE WEEK 02/24/25 [History Confirmed 04/08/25] folic acid 1 mg tablet 1 mg PO DAILY 02/24/25 [History Confirmed 04/08/25] ketorolac 10 mg tablet 10 mg PO Q8H PRN pain #20 tabs 02/28/25 [Rx Confirmed 04/08/25] multivitamin 1 tab PO QAM #30 tabs 02/28/25 [Rx Confirmed 04/08/25] thiamine HCl (vitamin B1) 100 mg tablet 100 mg PO QDAY #30 tabs 02/28/25 [Rx Confirmed 04/08/25] cyclobenzaprine 15 mg capsule,extended release 24 hr 15 mg PO QDAY PRN muscle spasm #14 caps 03/08/25 [Rx Confirmed 04/08/25] gabapentin 100 mg capsule 100 mg PO TID 1 month #90 caps 03/08/25 [Rx Confirmed 04/08/25] MA Intake Visit Data Collection New Patient or Established: Established Patient (seen at [facility] within 3 years) Seen by Clinical Staff ONLY (RN/MA): No Pain Present Currently: No Pain scale:: 0 Pain Scale Used: Garber-Agarwal/[employer] Required: No PCP or OBGYN visit in last 3 months: No Hx Now: No Do You Feel Safe at Home: Yes Authorities Contacted: N/A Smoking Status Smoking Status: Never smoker Immunization / Flu Flu Vaccine in the Last 12 Months: No Flu Vaccine Exclusion Criteria: No Exclusion Criteria Past Medical History Past Medical History NEUROLOGIC: Negative Neurological Disorders, Cerebrovascular Accident, Transient Ischemic Attacks (TIA), Dementia, Alzheimer's Disease, Parkinson's Disease, Brain Tumor, Meningitis, Seizures, Epilepsy, Multiple Sclerosis, Cerebral Palsy, Amyotrophic Lateral Sclerosis (ALS/Vivien Gehrig's), Guillain-[place] Syndrome, Spina Bifida, Paralysis, Peripheral Neuropathy, Vargas's Palsy, Subdural Hematoma, Migraine, Head Trauma, Spinal Cord Injury or Traumatic Brain Injury CARDIAC: Negative Cardiac Disorders or Congestive Heart Failure RESPIRATORY: Negative Chronic Obstructive Pulmonary Disease (COPD), Asthma, Bronchitis, Emphysema, Pneumonia, Pulmonary Fibrosis, Cystic Fibrosis, Tuberculosis, Pulmonary Embolism, Pulmonary Edema or Sleep Apnea GASTROINTESTINAL: Positive Gastrointestinal Disorders; Negative Hepatitis or Colorectal Cancer GENITOURINARY: Positive Genitourinary Disorders; Negative Renal Disease or Prostate Cancer REPRODUCTIVE: Positive Previous Pregnancies; Negative Breast Cancer, Endometriosis, Genital Herpes, Gonorrhea, Pelvic Inflammatory Disease, Syphilis, Testicular Cancer or Uterine Prolapse MUSCULOSKELETAL: Negative Muscular Dystrophy, Myasthenia Gravis, Marfan's Syndrome, Bone Cancer, Arthritis, Rheumatoid Arthritis, Osteoporosis, Degenerative Disk Disease, Gout, Scoliosis, Carpal Tunnel Syndrome, Fibromyalgia, Fractures, Degenerative Joint Disease, Osteomyelitis or Poliovirus ENT: Negative Cataracts or Head Trauma ENDOCRINE: Negative Endocrine Disorders, Diabetes Mellitus Type 1 or Diabetes Mellitus Type 2 HEMATOLOGIC: Negative Blood Disorders, Anemia, Leukemia, Hemophilia, Thalassemia, Sickle Cell Disease or Clotting Problems PSYCHO/SOCIAL: Positive Depression and Anxiety; Negative Psychiatric Problems, Schizophrenia, Recreational Drug Use, Bipolar Disorder, Behavior Problems, Self-Mutilation, Attention Deficit Disorder, Attention Deficit Hyperactivity Disorder, Depression, Post Traumatic Stress Disorder or Eating Disorder OTHER HISTORY: Negative Hospitalization, Down Syndrome, Autism, Developmental Delay, Shingles, Falls, Blood Transfusions, Blood Transfusion Reaction, Anesthesia Reactions, Organ Transplant, Chemotherapy, Radiation Therapy, Hyperba annalise Therapy, MRSA, VRSA, Vancomycin-Resistant Enterococci, Human Immunodeficiency Virus (HIV), Chicken Pox, Measles, Mumps, Rubella ([place] Measles), Pertussis, Clostridium Difficile, Cancer, Breast Cancer, Cervical Cancer, Colorectal Cancer, Lung Cancer, Ovarian Cancer, Prostate Cancer or Testicular Cancer Family History FAMILY HISTORY: Negative Family Psychiatric Problems, Family Respiratory Disorders, Family Cardiac Disorders, Family Gastrointestinal Problems, Family Cancer, Family Surgery or Family Anesthesia Reaction Surgical History SURGICAL: Negative Cardiac Surgery, Open Heart Surgery, Coronary Artery Bypass Graft, Valve Replacement, Vascular Surgery, Coronary Stent, Cardiac Catheterization, Pacemaker, Angiogram, Auto Implanted Cardiovert Defib, Carotid Endarterectomy, Endocrine Surgery, Thyroidectomy, Ear Surgery, Tympanostomy Tube, Eye Surgery, Nose Surgery, Oral Surgery, Tonsillectomy, Adenoidectomy, Cochlear Implant, Corneal Transplant, Throat Surgery, Abdominal Surgery, Tracheostomy, Gastric Bypass Surgery, Gastrostomy, Bowel Surgery, Nephrectomy, Transurethral Resection, Joint Replacement, Amputation, Open Reduction Internal Fixation, Arthroscopy, Neurologic Surgery, Brain Shunt, Mastectomy, Lumpectomy, Hysterectomy, Tubal Ligation, Section or Organ Transplant Social History SMOKING STATUS: Smoking status: Never smoker SECOND HAND EXPOSURE: second hand exposure: No ALCOHOL: Alcohol Intake: Current ALCOHOL FREQUENCY: Alcohol Intake Frequency: A Few Times a Week HOUSING: Housing: Apartment LIVES WITH: Lives With: Family Patient Portal Shawna Social History Living Situation History Housing: Apartment Tobacco History Smoking Status: Never smoker Second Hand Smoke Exposure: No Alcohol History Alcohol Intake: Current Alcohol Intake Frequency: A Few Times a Week Domestic Abuse History Do You Feel Safe at Home: Yes Review of Systems Report any current symptoms Only answer those that you have currently: Past Medical History Past Medical History Have you ever been diagnosed with any of the following: Neurological Problems Cerebrovascular Accident (CVA): No Transient Ischemic Attacks (TIA): No Dementia: No Alzheimer's Disease: No Parkinson's Disease: No Brain Tumor: No Meningitis: No Seizures: No Epilepsy: No Multiple Sclerosis: No Cerebral Palsy: No Amyotrophic Lateral Sclerosis (ALS/Vivien Gehrig's): No Guillain-[place] Syndrome: No Spina Bifida: No Paralysis: No Peripheral Neuropathy: No Vargas's Palsy: No Subdural Hematoma: No Migraine: No Head Trauma: No Spinal Cord Injury: No Traumatic Brain Injury: No Cardiology Problems Congestive Heart Failure: No Respiratory Problems Chronic Obstructive Pulmonary Disease (COPD): No Asthma: No Bronchitis: No Emphysema: No Pneumonia: No Pulmonary Fibrosis: No Tuberculosis: No Pulmonary Embolism: No Pulmonary Edema: No Sleep Apnea: No Stomache/Intestinal Problems Hepatitis: No Colorectal Cancer: No Genital/Urinary Problems Renal Disease: No Reproductive Problems Breast Cancer: No Endometriosis: No Genital Herpes: No Gonorrhea: No Pelvic Inflammatory Disease: No Previous Pregnancies: Yes Syphilis: No Uterine Prolapse: No Musculoskeletal Problems Muscular Dystrophy: No Myasthenia Gravis: No Marfan's Syndrome: No Bone Cancer: No Arthritis: No Rheumatoid Arthritis: No Osteoporosis: No Degenerative Disk Disease: No Gout: No Scoliosis: No Carpal Tunnel Syndrome: No Fibromyalgia: No Fractures: No Degenerative Joint Disease: No Osteomyelitis: No Poliovirus: No Head,Eye,Nose,Throat Problems Cataracts: No Endocrine Problems Diabetes Mellitus Type 1: No Diabetes Mellitus Type 2: No Blood Problems Anemia: No Leukemia: No Hemophilia: No Thalassemia: No Sickle Cell Disease: No Clotting Problems: No Psychologic Problems Schizophrenia: No Recreational Drug Use: No Bipolar Disorder: No Depression: Yes Anxiety: Yes Behavior Problems: No Self-Mutilation: No Attention Deficit Disorder: No Attention Deficit Hyperactivity Disorder: No Depression: No Post Traumatic Stress Disorder: No Eating Disorder: No Other Problems Hospitalization: No Down Syndrome: No Autism: No Developmental Delay: No Shingles: No Falls: No Blood Transfusions: No Blood Transfusion Reaction: No Anesthesia Reactions: No Organ Transplant: No Chemotherapy: No Radiation Therapy: No Hyperbaric Therapy: No MRSA: No VRSA: No Vancomycin-Resistant Enterococci: No Human Immunodeficiency Virus (HIV): No Chicken Pox: No Measles: No Mumps: No Rubella ([place] Measles): No Pertussis: No Clostridium Difficile: No Cancer: No Cervical Cancer: No Lung Cancer: No Ovarian Cancer: No Surgical History Carotid Endarterectomy: No Coronary Artery Bypass Graft: No Valve Replacement: No Hysterectomy: No Pacemaker: No Thyroidectomy: No History of Present Illness HPI Narrative A 24-year-old female with no significant past medical history presented to the hospital with chief complaints of abdominal pain and vomiting since 2 days and admitted in the hospital for acute pancreatitis and got discharged on 02/28/2025. 03/08/2025: Came for follow up visit from the hospital. Reported that her abdominal pain subsided completely. Denies any other complaints. still complaining of mild pain and weakness in the lower extremities. Review of Systems Review of Systems Systems Reviewed: All systems reviewed, normal except as documented Objective/Exam Narrative Physical exam: General: Awake. HEENT: Normocephalic, atraumatic, mucous membranes moist. Heart: Regular rate and rhythm, no murmurs. Lungs: Clear to auscultation with no wheezing or crackles. Abdomen: Soft, nondistended, nontender, positive bowel sounds. ?No guarding or rebound tenderness. Neurologic: Alert and oriented x3, no gross neurological deficit, and patient able to move all 4 extremities. Extremities: No edema. Skin: No rash or ecchymoses. Assessment & Plan Diagnosis / Problem List (1) Polyneuropathy: Status: Acute Assessment & Plan: -Reported that she has noted mild weakness and paresthesias in the lower extremities since few months before the hospital admission and worsened after the hospital admission -Consumes alcohol once every week - 3-4 drinks of hard liquor with beer Plan: - Dr. Giordano was consulted during the hospital stay and she recommended ou tpatient follow up in her clinic - Recommended to abstain from alcohol usage and continue to take multivitamin (2) Gall bladder stones: Status: Acute Assessment & Plan: Gallbladder ultrasound showed cholelithiasis with no duct obstruction with CBD 0.4 cm during the hospital admission Dr. Baldwin is consulted during the hospital admission and patient refused surgery at that time Patient is currently asymptomatic Plan: - Recommended to follow up with Dr. Baldwin for further evaluation (3) Acute pancreatitis: Status: Resolved Qualifiers: Pancreatitis type: alcohol induced Acute pancreatitis complication: no infection or necrosis Qualified Code(s): K85.20 - Alcohol induced acute pancreatitis without necrosis or infection Assessment & Plan: Admitted in the hospital for acute pancreatitis, alcohol induced and resolved with fluids and pain management Plan: Recommended to abstain from alcohol Office Procedures [facility] Level of Care Nursing/Assessment Patient Status: Established Patient Nursing Assessment/Reassessment: Medication Reconciliation, Update PMH in EMR and Vital Signs Coordination of Care: Complex Care and Chronic Disease 1-5, Consent,records obtained, informed consent, Education Simp Pt/Fam, Lab and Imaging orders and Staff clarify orders Established Patient Charge Established Patient Point Assignment: 100 Established Patient Point Charge: Level 3 (80-115)
== END 2025-03-08 15:08 | disposition home or self-care (01) ==
LOC: HODAHC 14:02
PROVIDERS: Supervising Provider Internal Medicine
DX: Z09 Encounter for follow-up examination after completed treatment for conditions other than malignant neoplasm (principal); G62.9 Polyneuropathy, unspecified; K80.20 Calculus of gallbladder without cholecystitis without obstruction; Z87.19 Personal history of other diseases of the digestive system
CPT/HCPCS: 99213; G0463

== ENCOUNTER 2025-04-08 13:49 | Outpatient (AMB) | payer MEDICAID, SELFPAY ==
[2025-04-08 14:02] VITALS: BP 118/77; PULSE 74; RESP 18; TEMP 36.7; O2SAT 99; BMI 29.0
--- NOTE | 2025-04-08 14:02 | GSCOFFNT_ITS ---
Vital Signs - [facility] 04/08/25 14:02 Height 1.57 m Height Method Stated Weight 71.412 kg Weight Measurement Method Standing Scale BMI 29.0 BP 118/77 Blood Pressure Source Automatic Cuff Blood Pressure Location Left Upper Arm Position Sitting Respiration 18 Pulse 74 Pulse Source Monitor Temp 98.0 F Temp Source Temporal Artery Scan Pulse Oximetry (%) 99 Oxygen Delivery Method Room Air Med/Allergies Allergies & Medications Allergies No Known Allergies Allergy (Verified 04/08/25 14:02) Medication Reconciliation acetaminophen 500 mg capsule 1,000 mg (2 x 500 mg) PO TID #30 caps 10/13/22 [Rx Confirmed 04/08/25] ergocalciferol (vitamin D2) 1,250 mcg (50,000 unit) capsule 1,250 mcg PO .ONCE WEEK 02/24/25 [History Confirmed 04/08/25] folic acid 1 mg tablet 1 mg PO DAILY 02/24/25 [History Confirmed 04/08/25] ketorolac 10 mg tablet 10 mg PO Q8H PRN pain #20 tabs 02/28/25 [Rx Confirmed 04/08/25] multivitamin 1 tab PO QAM #30 tabs 02/28/25 [Rx Confirmed 04/08/25] thiamine HCl (vitamin B1) 100 mg tablet 100 mg PO QDAY #30 tabs 02/28/25 [Rx Confirmed 04/08/25] cyclobenzaprine 15 mg capsule,extended release 24 hr 15 mg PO QDAY PRN muscle spasm #14 caps 03/08/25 [Rx Confirmed 04/08/25] gabapentin 100 mg capsule 100 mg PO TID 1 month #90 caps 03/08/25 [Rx Confirmed 04/08/25] MA Intake Visit Data Collection New Patient or Established: Established Patient (seen at [facility] within 3 years) Seen by Clinical Staff ONLY (RN/MA): No Reason for Visit:: FOLLOW UP Pain Present Currently: No PCP or OBGYN visit in last 3 months: Yes Hx Now: No Do You Feel Safe at Home: Yes Authorities Contacted: N/A Smoking Status Smoking Status: Never smoker Immunization / Flu Flu Vaccine in the Last 12 Months: No Flu Vaccine Exclusion Criteria: No Exclusion Criteria Past Medical History Past Medical History NEUROLOGIC: Negative Neurological Disorders, Cerebrovascular Accident, Transient Ischemic Attacks (TIA), Dementia, Alzheimer's Disease, Parkinson's Disease, Brain Tumor, Meningitis, Seizures, Epilepsy, Multiple Sclerosis, Cerebral Palsy, Amyotrophic Lateral Sclerosis (ALS/Vivien Gehrig's), Guillain-[place] Syndrome, Spina Bifida, Paralysis, Peripheral Neuropathy, Vargas's Palsy, Subdural Hematoma, Migraine, Head Trauma, Spinal Cord Injury or Traumatic Brain Injury CARDIAC: Negative Cardiac Disorders or Congestive Heart Failure RESPIRATORY: Negative Chronic Obstructive Pulmonary Disease (COPD), Asthma, Bronchitis, Emphysema, Pneumonia, Pulmonary Fibrosis, Cystic Fibrosis, Tuberculosis, Pulmonary Embolism, Pulmonary Edema or Sleep Apnea GASTROINTESTINAL: Positive Gastrointestinal Disorders; Negative Hepatitis or Colorectal Cancer GENITOURINARY: Positive Genitourinary Disorders; Negative Renal Disease or Prostate Cancer REPRODUCTIVE: Positive Previous Pregnancies; Negative Breast Cancer, Endometriosis, Genital Herpes, Gonorrhea, Pelvic Inflammatory Disease, Syphilis, Testicular Cancer or Uterine Prolapse MUSCULOSKELETAL: Negative Muscular Dystrophy, Myasthenia Gravis, Marfan's Syndrome, Bone Cancer, Arthritis, Rheumatoid Arthritis, Osteoporosis, Degenerative Disk Disease, Gout, Scoliosis, Carpal Tunnel Syndrome, Fibromyalgi a, Fractures, Degenerative Joint Disease, Osteomyelitis or Poliovirus ENT: Negative Cataracts or Head Trauma ENDOCRINE: Negative Endocrine Disorders, Diabetes Mellitus Type 1 or Diabetes Mellitus Type 2 HEMATOLOGIC: Negative Blood Disorders, Anemia, Leukemia, Hemophilia, Thalassemia, Sickle Cell Disease or Clotting Problems PSYCHO/SOCIAL: Positive Depression and Anxiety; Negative Psychiatric Problems, Schizophrenia, Recreational Drug Use, Bipolar Disorder, Behavior Problems, Self-Mutilation, Attention Deficit Disorder, Attention Deficit Hyperactivity Disorder, Depression, Post Traumatic Stress Disorder or Eating Disorder OTHER HISTORY: Negative Hospitalization, Down Syndrome, Autism, Developmental Delay, Shingles, Falls, Blood Transfusions, Blood Transfusion Reaction, Anesthesia Reactions, Organ Transplant, Chemotherapy, Radiation Therapy, Hyperbaric Therapy, MRSA, VRSA, Vancomycin-Resistant Enterococci, Human Immunodeficiency Virus (HIV), Chicken Pox, Measles, Mumps, Rubella ([place] Measles), Pertussis, Clostridium Difficile, Cancer, Breast Cancer, Cervical Cancer, Colorectal Cancer, Lung Cancer, Ovarian Cancer, Prostate Cancer or Testicular Cancer Family History FAMILY HISTORY: Negative Family Psychiatric Problems, Family Respiratory Disorders, Family Cardiac Disorders, Family Gastrointestinal Problems, Family Cancer, Family Surgery or Family Anesthesia Reaction Surgical History SURGICAL: Negative Cardiac Surgery, Open Heart Surgery, Coronary Artery Bypass Graft, Valve Replacement, Vascular Surgery, Coronary Stent, Cardiac Catheterization, Pacemaker, Angiogram, Auto Implanted Cardiovert Defib, Carotid Endarterectomy, Endocrine Surgery, Thyroidectomy, Ear Surgery, Tympanostomy Tube, Eye Surgery, Nose Surgery, Oral Surgery, Tonsillectomy, Adenoidectomy, Cochlear Implant, Corneal Transplant, Throat Surgery, Abdominal Surgery, Tracheostomy, Gastric Bypass Surgery, Gastrostomy, Bowel Surgery, Nephrectomy, Transurethral Resection, Joint Replacement, Amputation, Open Reduction Internal Fixation, Arthroscopy, Neurologic Surgery, Brain Shunt, Mastectomy, Lumpectomy, Hysterectomy, Tubal Ligation, Section or Organ Transplant Social History SMOKING STATUS: Smoking status: Never smoker SECOND HAND EXPOSURE: second hand exposure: No ALCOHOL: Alcohol Intake: Current ALCOHOL FREQUENCY: Alcohol Intake Frequency: A Few Times a Week HOUSING: Housing: Apartment LIVES WITH: Lives With: Family HPI HPI Narrative 24F who was hospitalized 02/2025 for acute pancreatitis, in the setting of binge drinking but also found to have gallstones. At the time I spoke to her about the possibility of cholecystectomy in order to reduce the likelihood of recurrent pancreatitis, but pt preferred to hold off. Today she reports feeling well with no further pain, no nausea/vomiting, she is eating well and having regular BMs. She confirms again that she has never had episodes of epigastric/RUQ pain aside from her episode of pancreatitis, and she has stopped drinking since her admission ROS Review of Systems Systems Reviewed: All systems reviewed, normal except as documented Objective/Exam General General Appearance: alert, cooperative and well groomed Resp Respiratory exam: Absent respiratory distress Assessment & Plan Diagnosis / Problem List (1) Acute pancreatitis: Status: Acute Assessment & Plan: 24F treated for acute pancreatitis in the setting of alcohol use also found to have gallstones. I explained again today that it is reasonable to consider surgery as gallstones can also contribute to pancreatitis, but also that it reasonable to wait as she has never had any symptoms of biliary colic. Pt prefers to hold off on surgery but is encouraged to reach out if symptoms develop Office Procedures [facility] Level of Care Nursing/Assessment Patient Status: Established Patient Nursing Assessment/Reassesment: Medication Reconciliation, Update PMH in EMR and Vital Signs Coordination of Care: Complex Care and Chronic Disease 1-5, Consent,records obtained, informed consent, Education Simp Pt/Fam, Results/Orders obtained and Staff clarify orders Established Patient Charge Established Patient Point Assignment: 90 Established Patient Point Charge: EP Level 3 (80-115) Patient Portal Questionaires Social History Living Situation History Housing: Apartment Tobacco History Smoking Status: Never smoker Second Hand Smoke Exposure: No Alcohol History Alcohol Intake: Current Alcohol Intake Frequency: A Few Times a Week Domestic Abuse History Do You Feel Safe at Home: Yes Review of Systems Report any current symptoms Only answer those that you have currently: Past Medical History Past Medical History Have you ever been diagnosed with any of the following: Neurological Problems Cerebrovascular Accident (CVA): No Transient Ischemic Attacks (TIA): No Dementia: No Alzheimer's Disease: No Parkinson's Disease: No Brain Tumor: No Meningitis: No Seizures: No Epilepsy: No Multiple Sclerosis: No Cerebral Palsy: No Amyotrophic Lateral Sclerosis (ALS/Vivien Gehrig's): No Guillain-[place] Syndrome: No Spina Bifida: No Paralysis: No Peripheral Neuropathy: No Vargas's Palsy: No Subdural Hematoma: No Migraine: No Head Trauma: No Spinal Cord Injury: No Traumatic Brain Injury: No Cardiology Problems Congestive Heart Failure: No Respiratory Problems Chronic Obstructive Pulmonary Disease (COPD): No Asthma: No Bronchitis: No Emphysema: No Pneumonia: No Pulmonary Fibrosis: No Tuberculosis: No Pulmonary Embolism: No Pulmonary Edema: No Sleep Apnea: No Stomache/Intestinal Problems Hepatitis: No Colorectal Cancer: No Genital/Urinary Problems Renal Disease: No Reproductive Problems Breast Cancer: No Endometriosis: No Genital Herpes: No Gonorrhea: No Pelvic Inflammatory Disease: No Previous Pregnancies: Yes Syphilis: No Uterine Prolapse: No Musculoskeletal Problems Muscular Dystrophy: No Myasthenia Gravis: No Marfan's Syndrome: No Bone Cancer: No Arthritis: No Rheumatoid Arthritis: No Osteoporosis: No Degenerative Disk Disease: No Gout: No Scoliosis: No Carpal Tunnel Syndrome: No Fibromyalgia: No Fractures: No Degenerative Joint Disease: No Osteomyelitis: No Poliovirus: No Head,Eye,Nose,Throat Problems Cataracts: No Endocrine Problems Diabetes Mellitus Type 1: No Diabetes Mellitus Type 2: No Blood Problems Anemia: No Leukemia: No Hemophilia: No Thalassemia: No Sickle Cell Disease: No Clotting Problems: No Psychologic Problems Schizophrenia: No Recreational Drug Use: No Bipolar Disorder: No Depression: Yes Anxiety: Yes Behavior Problems: No Self-Mutilation: No Attention Deficit Disorder: No Attention Deficit Hyperactivity Disorder: No Depression: No Post Traumatic Stress Disorder: No Eating Disorder: No Other Problems Hospitalization: No Down Syndrome: No Autism: No Developmental Delay: No Shingles: No Falls: No Blood Transfusions: No Blood Transfusion Reaction: No Anesthesia Reactions: No Organ Transplant: No Chemotherapy: No Radiation Therapy: No Hyperbaric Therapy: No MRSA: No VRSA: No Vancomycin-Resistant Enterococci: No Human Immunodeficiency Virus (HIV): No Chicken Pox: No Measles: No Mumps: No Rubella ([place] Measles): No Pertussis: No Clostridium Difficile: No Cancer: No Cervical Cancer: No Lung Cancer: No Ovarian Cancer: No Surgical History Carotid Endarterectomy: No Coronary Artery Bypass Graft: No Valve Replacement: No Hysterectomy: No Pacemaker: No Thyroidectomy: No
== END 2025-04-08 14:11 | disposition home or self-care (01) ==
LOC: HODSRG 13:49
PROVIDERS: Supervising Provider Surgery; Visit Provider Surgery
DX: K85.90 Acute pancreatitis without necrosis or infection, unspecified (principal)
CPT/HCPCS: 99213; G0463